=== PATIENT | male | born 1970 ===

== ENCOUNTER 2017-07-13 10:14 | Emergency (ER) | payer OTHER ==
[2017-07-13 10:24] VITALS: BMI 29.0
[2017-07-13] MEDS ORDERED: Sodium Chloride 0.9% 1,000 ML IV STA (10:43)
[2017-07-13] MEDS ORDERED: Acetaminophen 160 mg/5 ml UD PO STA (10:47)
[2017-07-13] MEDS ORDERED: Iohexol 350 MG/100 ML VIAL ONE (10:57)
[2017-07-13 11:15] LABS: BASO # 0.01 K/mm3 (0.0-2.0); BASO % 0.1 % (0.0-3.0); EOS % 0.1 % (1.5-5.0); GRAN # 5.46 (1.4-6.5); GRAN % 75.9 % (50.0-68.0); HEMATOCRIT 37.1 % (42.0-52.0); LYMPH # 0.5 (1.2-3.4); LYMPH % 7.4 % (22.0-35.0); MEAN CELL VOLUME 86.1 fl (80.0-105.0); MEAN CORPUSCULAR HEMOGLOBIN 29.7 pg (25.0-35.0); MEAN CORPUSCULAR HGB CONC 34.5 g/dl (31.0-37.0); MEAN PLATELET VOLUME 10.4 fl (7.0-11.0); MONO # 1.2 (0.1-0.6); MONO % 16.5 % (1.0-6.0); RED CELL DISTRIBUTION WIDTH 13.2 % (11.5-14.5); WHITE BLOOD COUNT 7.2 10^3/ul (4.5-11.0)
[2017-07-13 11:17] LABS: ALB/GLOB RATIO 1.2 (1.1-1.8); ALKALINE PHOSPHATASE 60 U/L (38-126); ALT/SGPT 32 U/L (7-56); AST/SGOT 29 U/L (17-59); BILIRUBIN,TOTAL 0.9 mg/dL (0.2-1.3); BLOOD UREA NITROGEN 16 mg/dL (7-21); CALCIUM 8.9 mg/dL (8.4-10.5); CARBON DIOXIDE 26 mmol/L (21-33); CHLORIDE 100 mmol/L (98-107); GFR AFRICAN-AMERICAN > 60; GLUCOSE,RANDOM 99 mg/dL (70-110); POTASSIUM 4.7 mmol/L (3.6-5.0); SODIUM 135 mmol/L (132-148); TOTAL PROTEIN 6.9 g/dL (5.8-8.3)
--- NOTE | 2017-07-13 11:18 | ED PDOC ---
Arrival/HPI - General Chief Complaint: ENT Problem Time Seen by Provider: 07/13/17 10:33 Historian: Patient - History of Present Illness Narrative History of Present Illness (Text): 07/13/17 11:30 46yr old diabetic male presents today with 3 week history of sore throat and difficulty swallowing. pt states he hasnt been able to eat or drink anything for the past 3 weeks due to pain. pt states he has tried cough medications, throat lozenges and tylenol/aleve without improvement of pain. pt denies fever/ chills at home but states he was told he has fever in Er. pt states he also has productive cough and nasal congestion. no cp or sob. no abdominal pain. no dizziness or weakness. no other complaints. Time/Duration: > week (3weeks) Symptom Onset: Gradual Symptom Course: Worsening Quality: Stabbing, Burning Severity Level: 8 Past Medical History - Provider Review Nursing Documentation Reviewed: Yes - Travel History Have you recently traveled outside [place] w/in the past 3 mons?: No - Infectious Disease Hx of Infectious Diseases: None - Tetanus Immunization Tetanus Immunization: Unknown - Endocrine/Metabolic Hx Diabetes Mellitus Type 2: Yes (diet control) - Psychiatric Hx Substance Use: No - Surgical History Other/Comment: L calf muscle surgery - Anesthesia Hx Anesthesia Reactions: No Hx Malignant Hyperthermia: No Family/Social History - Physician Review Nursing Documentation Reviewed: Yes Family/Social History: Unknown Family HX Smoking Status: Never Smoked Hx Alcohol Use: Yes Frequency of alcohol use: Socially Hx Substance Use: No Allergies/Home Meds Allergies/Adverse Reactions: Allergies No Known Allergies Allergy (Verified 07/13/17 10:24) Review of Systems - Review of Systems Constitutional: Fevers. absent: Fatigue ENT: Sore Throat, Sinus Congestion Respiratory: Cough, Sputum. absent: SOB Cardiovascular: absent: Chest Pain, Palpitations Gastrointestinal: absent: Abdominal Pain, Nausea, Vomiting Genitourinary Male: absent: Dysuria Musculoskeletal: absent: Arthralgias Skin: absent: Rash, Pruritis Neurological: absent: Headache, Dizziness Psychiatric: absent: Anxiety, Depression Physical Exam Vital Signs Reviewed: Yes Vital Signs Temp Pulse Resp BP Pulse Ox 07/13/17 13:44 99.2 F 90 18 108/66 97 07/13/17 12:29 91 H 18 95/52 L 96 07/13/17 10:14 102.1 F H 107 H 20 106/62 99 Temperature: Febrile Blood Pressure: Normal Pulse: Tachycardic Respiratory Rate: Normal Appearance: Positive for: Well-Appearing, Non-Toxic, Comfortable Pain Distress: None Mental Status: Positive for: Alert and Oriented X 3 Finger Stick Blood Glucose: 56 - Systems Exam Head: Present: Atraumatic Conjunctiva: Present: Normal Ears: Present: Normal, NORMAL TM. No: Erythema Mouth: Present: Moist Mucous Membranes, Normal Lips, Normal Tounge. No: Drooling, Trismus Pharnyx: Present: ERYTHEMA. No: EXUDATE, TONSILS ENLARGED, Peritonsilar Swelling, Uvular Deviation, Muffled/Hoarse Voice, Strider, Soft Palate/Uvular Edema Nose (External): Present: Atraumatic Nose (Internal): Present: Normal Inspection Neck: Present: Normal Range of Motion, Trachea Midline. No: Lymphadenopathy Respiratory/Chest: Present: Clear to Auscultation, Good Air Exchange. No: Respiratory Distress, Accessory Muscle Use Cardiovascular: Present: Regular Rate and Rhythm, Normal S1, S2. No: Murmurs Abdomen: No: Tenderness, Distention, Rebound, Guarding Back: Present: Normal Inspection Neurological: Present: GCS=15 Skin: Present: Warm, Dry, Normal Color. No: Rashes Psychiatric: Present: Alert, Oriented x 3 Medical Decision Making ED Course and Treatment: 07/13/17 13:32 Patient is nontoxic well appearing in no distress. febrile. c/o sore throat. pain with swallowing. Toradol 30 mg IM tylenol liquid. ct neck with contrast; FINDINGS: NASOPHARYNX: Unremarkable. SUPRAHYOID NECK: Unremarkable oropharynx, oral cavity, parapharyngeal space and retropharyngeal space. INFRAHYOID NECK: Unremarkable larynx, hypopharynx, and supraglottic space. Vocal cords intact. MASS: None. GLANDS: Parotid and submandibular glands unremarkable. Normal size thyroid gland, without nodule. LYMPH NODES: Mildly enlarged lymph nodes are seen bilaterally. CERVICAL SPINE: No fracture or focal lesion. VASCULAR STRUCTURES: Unremarkable. OTHER FINDINGS: None. IMPRESSION: Unremarkable contrast enhanced CT of the neck. Decadron 10 mg IM amoxicillin PO Patient reassessment: Patient feeling better after medications, vital signs stable. Moist mucous membranes. eating and drinking in er. will d/c home to f/u with GI and ENT for further evaluation. I advised follow up with primary care physician, ENT and GI within the next 2 days, advised to increase fluids take medications as prescribed and return if symptoms worsen persist or if new symptoms develop. Patient verbalizes understanding of discharge instructions and need for immediate followup. all aspects of this case were discussed the attending of record. IMPRESSION; pharyngitis Motrin every 6 hours as needed for pain/fever reduction Increase fluids Amoxicillin; 3 times daily x10 days Follow up primary care physician within the next 2 days Follow up with the ENT specialist within the next 2 days. Saltwater gargles, throat lozenges Return if symptoms worsen persist or if the symptoms develop - Lab Interpretations Lab Results: 07/13/17 11:00 07/13/17 11:00 Lab Results 07/13/17 11:00: WBC 7.2, RBC 4.31, Hgb 12.8 L, Hct 37.1 L, MCV 86.1, MCH 29.7, MCHC 34.5, RDW 13.2, Plt Count 150, MPV 10.4, Gran % 75.9 H, Lymph % (Auto) 7.4 L, [place] % (Auto) 16.5 H, Eos % (Auto) 0.1 L, Baso % (Auto) 0.1, Gran # 5.46, Lymph # 0.5 L, [place] # 1.2 H, Eos # 0.0, Baso # 0.01 07/13/17 11:00: Sodium 135, Potassium 4.7, Chloride 100, Carbon Dioxide 26, Anion Gap 14, BUN 16, Creatinine 0.8, Est GFR ( Amer) > 60, Est GFR (Non- Af Amer) > 60, Random Glucose 99, Calcium 8.9, Total Bilirubin 0.9, AST 29, ALT 32, Alkaline Phosphatase 60, Total Protein 6.9, Albumin 3.8, Globulin 3.1, Albumin/Globulin Ratio 1.2 07/13/17 11:00: Grp A Beta Strep Ag Negative - RAD Interpretation Radiology Orders: 07/13/17 10:35 CHEST TWO VIEWS (PA/LAT) [RAD] Stat 07/13/17 10:49 NECK SOFT TISSUE W/CONTRAST [CT] Stat - Medication Orders Current Medication Orders: Discontinued Medications Acetaminophen (Tylenol 325mg Tab) 975 mg PO STAT STA Stop: 07/13/17 10:44 Last Admin: 07/13/17 11:16 Dose: Acetaminophen (Tylenol 160mg/5ml Oral Soln) 975 mg PO STAT STA Stop: 07/13/17 10:48 Last Admin: 07/13/17 12:08 Dose: Acetaminophen (Tylenol 650mg/20.3ml Solution Ud) 975 mg PO STAT STA Stop: 07/13/17 12:07 Last Admin: 07/13/17 12:24 Dose: 975 mg Amoxicillin (Amoxil 500 Mg Cap) 500 mg PO STAT STA PRN Reason: Protocol Stop: 07/13/17 13:33 Last Admin: 07/13/17 13:49 Dose: 500 mg Dexamethasone (Decadron Inj) 10 mg IVP STAT STA Stop: 07/13/17 13:32 Last Admin: 07/13/17 13:49 Dose: 10 mg IVP Administration Document 07/13/17 13:49 SRE (Rec: 07/13/17 13:49 SRE [id number]) Charges for Administration # of IVP Administrations 1 Sodium Chloride (Sodium Chloride 0.9%) 1,000 mls @ 999 mls/hr IV .Q1H1M STA Stop: 07/13/17 11:43 Last Admin: 07/13/17 12:12 Dose: 999 mls/hr eMAR Start Stop Document 07/13/17 12:12 SRE (Rec: 07/13/17 12:13 SRE [id number]) Intravenous Solution Start Date 07/13/17 Start Time 10:50 End Date 07/13/17 End time 11:50 Total Infusion Time 60 Ketorolac Tromethamine (Toradol) 30 mg IVP STAT STA Stop: 07/13/17 10:44 Last Admin: 07/13/17 12:13 Dose: 30 mg MAR Pain Assessment Document 07/13/17 12:13 SRE (Rec: 07/13/17 12:13 SRE [id number]) Pain Reassessment Is this a pain reassessment? Yes Sleep Is patient sleeping during reassessment? No Presence of Pain Presence of Pain Yes Pain Scale Used Pain Scale Used Numeric Location Pain Location Body Site Throat Description Description Constant IVP Administration Document 07/13/17 12:13 SRE (Rec: 07/13/17 12:13 SRE [id number]) Charges for Administration # of IVP Administrations 1 Re-Assess: MAR Pain Assessment Document 07/13/17 13:13 SRE (Rec: 07/13/17 13:47 SRE [id number]) Pain Reassessment Is this a pain reassessment? Yes Sleep Is patient sleeping during reassessment? No Presence of Pain Presence of Pain Yes Pain Scale Used Pain Scale Used Numeric Location Pain Location Body Site Throat Description Description Intermittent Disposition/Present on Arrival - Present on Arrival Any Indicators Present on Arrival: No History of DVT/PE: No History of Uncontrolled Diabetes: No Urinary Catheter: No History of Decub. Ulcer: No History Surgical Site Infection Following: None - Disposition Have Diagnosis and Disposition been Completed?: Yes Diagnosis: Pharyngitis, Fever Disposition: HOME/ ROUTINE Disposition Time: 13:35 Patient Plan: Discharge Condition: GOOD Discharge Instructions (ExitCare): Pharyngitis (ED) Additional Instructions: Motrin every 6 hours as needed for pain/fever reduction Increase fluids Amoxicillin; 3 times daily x10 days Follow up primary care physician within the next 2 days Follow up with the ENT specialist within the next 2 days. Saltwater gargles, throat lozenges Return if symptoms worsen persist or if the symptoms develop Prescriptions: Amoxicillin 500 mg PO TID #30 tab Ibuprofen [Motrin] 600 mg PO Q6H PRN #20 tab PRN Reason: pain/fever reduction Referrals: Galen Freitas DO [Staff Provider] - Follow up with primary Jose Rafael Disla MD [Staff Provider] - Follow up with primary Edgardo Tabares MD [Staff Provider] - Follow up with primary Forms: [employer] ([place]), WORK NOTE
[2017-07-13] MEDS ORDERED: Acetaminophen 650mg/20.3ml solution UD PO STA (12:06)
--- NOTE | 2017-07-13 12:08 | CT ---
PROCEDURE: CT NECK WITH CONTRAST HISTORY: throat pain, difficulty swallowing COMPARISON: None TECHNIQUE: CT of the neck with intravenous contrast. Coronal and sagittal reformats generated. Intravenous contrast dose: 100 cc of Omni 350 Radiation dose: DLP 363 mGy-cm This CT exam was performed using one or more of the following dose reduction techniques: Automated exposure control, adjustment of the mA and/or kV according to patient size, and/or use of iterative reconstruction technique. FINDINGS: NASOPHARYNX: Unremarkable. SUPRAHYOID NECK: Unremarkable oropharynx, oral cavity, parapharyngeal space and retropharyngeal space. INFRAHYOID NECK: Unremarkable larynx, hypopharynx, and supraglottic space. Vocal cords intact. MASS: None. GLANDS: Parotid and submandibular glands unremarkable. Normal size thyroid gland, without nodule. LYMPH NODES: Mildly enlarged lymph nodes are seen bilaterally. CERVICAL SPINE: No fracture or focal lesion. VASCULAR STRUCTURES: Unremarkable. OTHER FINDINGS: None. IMPRESSION: Unremarkable contrast enhanced CT of the neck.
[2017-07-13 12:32] VITALS: RESP 18
--- NOTE | 2017-07-13 13:04 | RAD ---
HISTORY: cough/fever COMPARISON: No prior. TECHNIQUE: Chest PA and lateral FINDINGS: LUNGS: There is linear scarring or atelectasis in the left midlung field. There is no focal consolidation PLEURA: No significant pleural effusion identified. No pneumothorax apparent. CARDIOVASCULAR: Normal. OSSEOUS STRUCTURES: No significant abnormalities. VISUALIZED UPPER ABDOMEN: Normal. OTHER FINDINGS: None. IMPRESSION: There is linear scarring or atelectasis in the left midlung field. There is no focal consolidation
[2017-07-13 13:45] VITALS: BP 108/66; PULSE 90; TEMP 99.2; O2SAT 97
== END 2017-07-13 13:58 | disposition home or self-care (01) ==
LOC: ED 10:14 → MERGE 10:14 → ED 13:58
DX: J02.9 Acute pharyngitis, unspecified (principal); R50.9 Fever, unspecified; E11.9 Type 2 diabetes mellitus without complications
CPT/HCPCS: 70491; 71020; 80053; 85025; 87070; 87430; 96361; 96374; 96375; 99284; J1100; J1885; J7040; Q9967

== ENCOUNTER 2018-01-15 11:28 | Inpatient (IN) | payer OTHER ==
[2018-01-15] MEDS ORDERED: Albuterol-Ipratrop 3 mg / 0.5 (3 ml) UD IH STA (11:58)
--- NOTE | 2018-01-15 12:02 | ED PDOC ---
Arrival/HPI - General Time Seen by Provider: 01/15/18 11:56 Historian: Patient - History of Present Illness Narrative History of Present Illness (Text): 01/15/18 11:59 47 year old male, whose past medical history includes diabetes, who presents to the emergency department complaining of dyspnea upon exertion, subjective fever , and a productive cough for 1.5 weeks. Patient states he has no energy for anything. Patient notes cough with deep breaths. Patient denies any chills, nausea, vomiting, diarrhea, back pain, neck pain, headache, dizziness, or any other complaints. Time/Duration: > week Symptom Onset: Gradual Symptom Course: Unchanged Activities at Onset: Light Context: Home Past Medical History - Provider Review Nursing Documentation Reviewed: Yes - Infectious Disease Hx of Infectious Diseases: None - Tetanus Immunization Tetanus Immunization: Unknown - Cardiac Hx Cardiac Disorders: No - Pulmonary Hx Respiratory Disorders: No - Neurological Hx Neurological Disorder: No - HEENT Hx HEENT Disorder: No - Renal Hx Renal Disorder: No - Endocrine/Metabolic Hx Diabetes Mellitus Type 2: Yes (diet control) - Hematological/Oncological Hx Blood Disorders: No - Integumentary Hx Dermatological Disorder: No - Musculoskeletal/Rheumatological Hx Musculoskeletal Disorders: No Hx Falls: No - Gastrointestinal Hx Gastrointestinal Disorders: No - Genitourinary/Gynecological Hx Genitourinary Disorders: No - Psychiatric Hx Substance Use: No - Surgical History Other/Comment: L calf muscle surgery - Anesthesia Hx Anesthesia Reactions: No Hx Malignant Hyperthermia: No Family/Social History - Physician Review Nursing Documentation Reviewed: Yes Family/Social History: Unknown Family HX Smoking Status: Never Smoked Hx Alcohol Use: Yes Hx Substance Use: No Allergies/Home Meds Allergies/Adverse Reactions: Allergies No Known Allergies Allergy (Verified 02/13/17 10:11) Home Medications: Home Meds Medication Instructions Recorded Confirmed Ibuprofen [Advil] 3 tab PO PRN PRN 02/13/17 02/13/17 Review of Systems - Review of Systems Constitutional: Fevers Eyes: absent: Vision Changes ENT: absent: Hearing Changes Respiratory: SOB, Cough, Sputum Cardiovascular: Chest Pain, CLEMONS Gastrointestinal: absent: Abdominal Pain, Diarrhea, Nausea, Vomiting Genitourinary Male: absent: Dysuria, Frequency, Hematuria, Urinary Output Changes Musculoskeletal: absent: Back Pain, Neck Pain Skin: absent: Rash Neurological: absent: Headache, Dizziness Psychiatric: absent: Anxiety, Depression Physical Exam Vital Signs Temp Pulse Resp BP Pulse Ox 01/15/18 12:10 18 01/15/18 12:04 98.7 F 100 H 18 120/75 91 L Temperature: Afebrile Blood Pressure: Normal Pulse: Tachycardic Respiratory Rate: Normal Appearance: Positive for: Well-Appearing, Non-Toxic, Comfortable Pain Distress: None Mental Status: Positive for: Alert and Oriented X 3 - Systems Exam Head: Present: Atraumatic, Normocephalic Pupils: Present: PERRL Extroacular Muscles: Present: EOMI Conjunctiva: Present: Normal Mouth: Present: Moist Mucous Membranes Neck: Present: Normal Range of Motion. No: Meningeal Signs, MIDLINE TENDERNESS , Paraspinal Tenderness Respiratory/Chest: Present: Other (Coarse breath sounds bilaterally). No: Respiratory Distress, Accessory Muscle Use Cardiovascular: Present: Regular Rate and Rhythm, Normal S1, S2. No: Murmurs Abdomen: No: Tenderness, Distention, Peritoneal Signs Back: Present: Normal Inspection. No: CVA Tenderness, Midline Tenderness, Paraspinal Tenderness Upper Extremity: Present: Normal Inspection. No: Cyanosis, Edema Lower Extremity: Present: Normal Inspection. No: Edema Neurological: Present: GCS=15, CN II-XII Intact, Speech Normal Skin: Present: Warm, Dry, Normal Color. No: Rashes Psychiatric: Present: Alert, Oriented x 3, Normal Insight, Normal Concentration Medical Decision Making ED Course and Treatment: 01/15/18 12:04 Impression: 47 year old male presents to the emergency department complaining of dyspnea upon exertion, cough, and fever. Plan: -- Chest X-ray -- D Dimer -- Labs -- Troponin -- Duoneb -- Benzonatate -- Reassess and disposition Progress Notes: 01/15/18 13:22 EKG shows sinus tachycardia at 104bpm. 01/15/18 14:06 Chest X-ray reviewed, shows: LUNGS: Abnormal opacity at lateral right lung base not clearly evident in the lateral projection but possibly lateral segment right middle lobe. Followup advised. Possible pneumonia. No other abnormal opacity appreciated. PLEURA: No significant pleural effusion identified. No pneumothorax apparent. CARDIOVASCULAR: Normal. OSSEOUS STRUCTURES: No significant abnormalities. VISUALIZED UPPER ABDOMEN: Normal. OTHER FINDINGS: None. IMPRESSION: Possible right middle lobe infiltrate. Followup advised. 01/15/18 14:26 CT Chest reviewed, shows: PULMONARY ARTERIES: Unremarkable. No pulmonary embolism. AORTA: No acute findings. No thoracic aortic aneurysm. LUNGS: multifocal bilateral patchy opacities most prominent in the lower lobes. Possible infectious etiology. No pulmonary mass. PLEURAL SPACES: Unremarkable. No effusion or pneuomothorax. HEART: Unremarkable. No cardiomegaly. No significant pericardial effusion. LYMPH NODES: No lymphadenopathy. BONES, CHEST WALL: Unremarkable. No fracture or destructive lesion OTHER FINDINGS: Mild splenomegaly. Nonspecific low-density lesion upper pole right kidney, 11 mm. Possible cyst. IMPRESSION: No evidence of pulmonary embolism. Multifocal bilateral pulmonary infiltrates common nonspecific. Possible infectious etiology. Additional minor findings as above. 01/15/18 15:13 Will admit to hospitalist for hypoxia and b/l pneumonia. Covered for community acquired pneumonia. HIV ordered. ABG added as requested by hospitalist. - Lab Interpretations Lab Results: 01/15/18 13:17 01/15/18 13:17 Lab Results 01/15/18 15:15: pCO2 32 L, pO2 56.0 L, HCO3 22.8, ABG pH 7.46 H, ABG Total CO2 23.8, ABG O2 Saturation 92.0 L, ABG O2 Content 15.3, ABG Base Excess -0.4, ABG Hemoglobin 12.1, ABG Carboxyhemoglobin 1.7 H, POC ABG HHb (Measured) 7.8 H, ABG Methemoglobin 0.5, ABG O2 Capacity 16.6, Hgb O2 Saturation 90.0 L, FiO2 21.0 01/15/18 13:17: Sodium 143, Potassium 4.3, Chloride 104, Carbon Dioxide 27, Anion Gap 16, BUN 14, Creatinine 0.8, Est GFR ( Amer) > 60, Est GFR (Non- Af Amer) > 60, Random Glucose 119 H, Calcium 8.8, Total Bilirubin 0.6, AST 39, ALT 31, Alkaline Phosphatase 87, Troponin I < 0.01, NT-Pro-B Natriuret Pep 31.2 , Total Protein 7.2, Albumin 3.8, Globulin 3.4, Albumin/Globulin Ratio 1.1 01/15/18 13:17: D-Dimer, Quantitative 2545 H 01/15/18 13:17: WBC 6.8, RBC 4.42, Hgb 12.7 L, Hct 37.3 L, MCV 84.4, MCH 28.7, MCHC 34.0, RDW 13.6, Plt Count 205, MPV 10.0, Gran % 77.9 H, Lymph % (Auto) 11.9 L, [place] % (Auto) 8.2 H, Eos % (Auto) 1.9, Baso % (Auto) 0.1, Gran # 5.32, Lymph # (Auto) 0.8 L, [place] # (Auto) 0.6, Eos # (Auto) 0.1, Baso # (Auto) 0.01 - RAD Interpretation Radiology Orders: 01/15/18 11:56 CHEST TWO VIEWS (PA/LAT) [RAD] Stat 01/15/18 13:40 ANGIO CHEST PE PROTOCOL [CT] Stat - Medication Orders Current Medication Orders: Ceftriaxone Sodium (Rocephin 1 Gram Ivpb) 1 gm in 100 mls @ 100 mls/hr IVPB ONCE ONE Stop: 01/15/18 15:44 Ceftriaxone Sodium (Rocephin 1 Gram Ivpb) 1 gm in 100 mls @ 100 mls/hr IVPB DAILY JENNIFER PRN Reason: Protocol Azithromycin (Zithromax 500mg In Ns) 500 mg in 250 mls @ 167 mls/hr IVPB DAILY JENNIFER PRN Reason: Protocol Insulin Human Regular (Humulin R Low) 0 units SC ACHS JENNIFER PRN Reason: Protocol Discontinued Medications Albuterol/Ipratropium (Duoneb 3 Mg/0.5 Mg (3 Ml) Ud) 3 ml IH STAT STA Stop: 01/15/18 11:59 Last Admin: 01/15/18 12:49 Dose: 3 ml Azithromycin (Zithromax) 500 mg PO STAT STA PRN Reason: Protocol Stop: 01/15/18 14:32 Benzonatate (Tessalon Perles) 100 mg PO STAT STA Stop: 01/15/18 11:59 Last Admin: 01/15/18 13:27 Dose: 100 mg - Scribe Statement The provider has reviewed the documentation as recorded by the Scribdenita Baldwin All medical record entries made by the Scribe were at my direction and personally dictated by me. I have reviewed the chart and agree that the record accurately reflects my personal performance of the history, physical exam, medical decision making, and the department course for this patient. I have also personally directed, reviewed, and agree with the discharge instructions and disposition. Disposition/Present on Arrival - Present on Arrival Any Indicators Present on Arrival: No History of DVT/PE: No History of Uncontrolled Diabetes: No Urinary Catheter: No History Surgical Site Infection Following: None - Disposition Have Diagnosis and Disposition been Completed?: Yes Diagnosis: Hypoxic, Pneumonia Disposition: HOSPITALIZED Disposition Time: 15:14 Patient Plan: Admission Patient Problems: Current Active Problems Problem Status Onset Hypoxic Acute Pneumonia Acute Condition: FAIR Referrals: Bradley Guajardo, [Primary Care Provider] - Follow up with primary
[2018-01-15 13:25] LABS: BASO # 0.01 K/mm3 (0.0-2.0); BASO % 0.1 % (0.0-3.0); EOS # 0.1 (0.0-0.7); EOS % 1.9 % (1.5-5.0); GRAN # 5.32 (1.4-6.5); GRAN % 77.9 % (50.0-68.0); HEMOGLOBIN 12.7 g/dL (14.0-18.0); LYMPH # 0.8 (1.2-3.4); LYMPH % 11.9 % (22.0-35.0); MEAN CELL VOLUME 84.4 fl (80.0-105.0); MEAN CORPUSCULAR HEMOGLOBIN 28.7 pg (25.0-35.0); MONO # 0.6 (0.1-0.6); MONO % 8.2 % (1.0-6.0); RBC 4.42 10^6/uL (3.5-6.1); RED CELL DISTRIBUTION WIDTH 13.6 % (11.5-14.5); WHITE BLOOD COUNT 6.8 10^3/ul (4.5-11.0)
[2018-01-15 13:37] LABS: ALB/GLOB RATIO 1.1 (1.1-1.8); ALBUMIN 3.8 g/dL (3.0-4.8); ALT/SGPT 31 U/L (7-56); AST/SGOT 39 U/L (17-59); BLOOD UREA NITROGEN 14 mg/dL (7-21); CALCIUM 8.8 mg/dL (8.4-10.5); GFR AFRICAN-AMERICAN > 60; GFR NON-AFRICAN AMERICAN > 60
[2018-01-15] MEDS ORDERED: Iohexol 350 MG/100 ML VIAL ONE (13:44)
[2018-01-15 13:48] LABS: B-TYPE NATRIURETIC PEPTIDE 31.2 pg/mL (0-450); TROPONIN I < 0.01 ng/mL
--- NOTE | 2018-01-15 14:00 | RAD ---
HISTORY: cough COMPARISON: 07/13/2017 TECHNIQUE: Chest PA and lateral FINDINGS: LUNGS: Abnormal opacity at lateral right lung base not clearly evident in the lateral projection but possibly lateral segment right middle lobe. Followup advised. Possible pneumonia. No other abnormal opacity appreciated. PLEURA: No significant pleural effusion identified. No pneumothorax apparent. CARDIOVASCULAR: Normal. OSSEOUS STRUCTURES: No significant abnormalities. VISUALIZED UPPER ABDOMEN: Normal. OTHER FINDINGS: None. IMPRESSION: Possible right middle lobe infiltrate. Followup advised.
--- NOTE | 2018-01-15 14:22 | CT ---
PROCEDURE: CT Chest with contrast (Pulmonary Angiogram) HISTORY: elevated d-dimer, short of breath COMPARISON: None available. TECHNIQUE: Axial computed tomography images were obtained of the chest in the pulmonary arterial phase of enhancement. Coronal and sagittal reformatted images were created and reviewed. Intravenous contrast dose: 100 mL Omnipaque 350 Radiation dose: Total exam DLP = 531.90 mGy-cm. This CT exam was performed using one or more of the following dose reduction techniques: Automated exposure control, adjustment of the mA and/or kV according to patient size, and/or use of iterative reconstruction technique. FINDINGS: PULMONARY ARTERIES: Unremarkable. No pulmonary embolism. AORTA: No acute findings. No thoracic aortic aneurysm. LUNGS: multifocal bilateral patchy opacities most prominent in the lower lobes. Possible infectious etiology. No pulmonary mass. PLEURAL SPACES: Unremarkable. No effusion or pneuomothorax. HEART: Unremarkable. No cardiomegaly. No significant pericardial effusion. LYMPH NODES: No lymphadenopathy. BONES, CHEST WALL: Unremarkable. No fracture or destructive lesion OTHER FINDINGS: Mild splenomegaly. Nonspecific low-density lesion upper pole right kidney, 11 mm. Possible cyst. IMPRESSION: No evidence of pulmonary embolism. Multifocal bilateral pulmonary infiltrates common nonspecific. Possible infectious etiology. Additional minor findings as above.
[2018-01-15] MEDS ORDERED: cefTRIAXone (Rocephin) 1 gm Inj IVPB STA (14:31)
[2018-01-15] MEDS ORDERED: cefTRIAXone 1 gm 1 GM/100 ML BAG IVPB ONE (14:45)
[2018-01-15 15:28] LABS: ARTERIAL BLOOD GAS HCO3 22.8 mmol/L (21-28); ARTERIAL BLOOD GAS HEMOGLOBIN 12.1 g/dL (11.7-17.4); ARTERIAL BLOOD GAS O2 CAPACITY 16.6 mL/dl (16-24); ARTERIAL BLOOD GAS O2 CONTENT 15.3 ML/dl (15-23); ARTERIAL BLOOD GAS PCO2 32 mm/Hg (35-45); ARTERIAL BLOOD GAS PH 7.46 (7.35-7.45); ARTERIAL BLOOD GAS TCO2 23.8 mmol.L (22-28)
[2018-01-15] MEDS ORDERED: Albuterol-Ipratrop 3 mg / 0.5 (3 ml) UD IH PRN (16:32)
--- NOTE | 2018-01-15 17:43 | CP.PCM.HP ---
<Tima Conrad - Last Filed: 01/15/18 17:36> History of Present Illness - History of Present Illness History of Present Illness: Patient is a 47M with a PMH of DM (No medication, diet controlled) who comes in to the ED with 1.5 wk history of worsening SOB. He states that it became progressively worse until yesterday when he was unable to climb one flight of stairs without stopping to rest and catch his breath. It is associated with a cough with minimally productive sputum, 3 episodes of diarrhea and no nausea or vomiting. Complains of subjective fevers and occasionally shaking chills. Denies any orthopnea or paroxysmal nocturnal dyspnea. Usually he is able to ride his bike or walk fairly long and generally tries to keep in good shape. He became worried when the SOB started to affect his ADLs. 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 Has 3 pets at home but these are not new. No recent incarceration. No sick contacts. No recent travel. No strange foods. 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 smoked for 10-15 years 1ppd but quit 17 years ago. social drinker (1-2 drinks every 2 weeks). Denies illicit drug use. Lives with his GF and dogs. Meds: None All: None Present on Admission - Present on Admission Any Indicators Present on Admission: No Review of Systems - Review of Systems Review of Systems: per HPI Past Patient History - Infectious Disease Hx of Infectious Diseases: None - Tetanus Immunizations Tetanus Immunization: Unknown - Past Medical History & Family History Past Medical History?: Yes - Past Social History Smoking Status: Never Smoked - CARDIAC Hx Cardiac Disorders: No - PULMONARY Hx Respiratory Disorders: No - NEUROLOGICAL Hx Neurological Disorder: No - HEENT Hx HEENT Problems: No - RENAL Hx Chronic Kidney Disease: No - ENDOCRINE/METABOLIC Hx Diabetes Mellitus Type 2: Yes (diet control) - HEMATOLOGICAL/ONCOLOGICAL Hx Blood Disorders: No - INTEGUMENTARY Hx Dermatological Problems: No - MUSCULOSKELETAL/RHEUMATOLOGICAL Hx Musculoskeletal Disorders: No Hx Falls: No - GASTROINTESTINAL Hx Gastrointestinal Disorders: No - GENITOURINARY/GYNECOLOGICAL Hx Genitourinary Disorders: No - PSYCHIATRIC Hx Substance Use: No - SURGICAL HISTORY Other/Comment: L calf muscle surgery - ANESTHESIA Hx Anesthesia Reactions: No Hx Malignant Hyperthermia: No Meds Allergies/Adverse Reactions: Allergies Allergy/AdvReac Type Severity Reaction Status Date / Time No Known Allergies Allergy Verified 02/13/17 10:11 Physical Exam - Constitutional Appears: Well - Head Exam Head Exam: ATRAUMATIC, NORMAL INSPECTION, NORMOCEPHALIC - Eye Exam Eye Exam: EOMI, Normal appearance, PERRL Pupil Exam: NORMAL ACCOMODATION, PERRL - ENT Exam ENT Exam: Mucous Membranes Moist, Normal Exam - Neck Exam Neck exam: Positive for: Normal Inspection - Respiratory Exam Respiratory Exam: Clear to Auscultation Bilateral, NORMAL BREATHING PATTERN - Cardiovascular Exam Cardiovascular Exam: REGULAR RHYTHM - GI/Abdominal Exam GI & Abdominal Exam: Normal Bowel Sounds, Soft. absent: Distended, Tenderness - Extremities Exam Extremities exam: Positive for: normal inspection. Negative for: joint swelling , tenderness - Back Exam Back exam: NORMAL INSPECTION - Neurological Exam Neurological exam: Alert, CN II-XII Intact, Normal Gait, Oriented x3, Reflexes Normal - Psychiatric Exam Psychiatric exam: Normal Affect, Normal Mood - Skin Skin Exam: Dry, Intact, Normal Color, Warm Results - Vital Signs Recent Vital Signs: Last Vital Signs Temp 98.7 F 01/15/18 12:04 Pulse 100 H 01/15/18 12:04 Resp 18 01/15/18 12:10 BP 120/75 01/15/18 12:04 Pulse Ox 91 L 01/15/18 12:04 - Labs Result Diagrams: 01/15/18 13:17 01/15/18 13:17 Labs: Laboratory Results - last 24 hr 01/15/18 15:15 pCO2 32 L pO2 56.0 L HCO3 22.8 ABG pH 7.46 H ABG Total CO2 23.8 ABG O2 Saturation 92.0 L ABG O2 Content 15.3 ABG Base Excess -0.4 ABG Hemoglobin 12.1 ABG Carboxyhemoglobin 1.7 H POC ABG HHb (Measured) 7.8 H ABG Methemoglobin 0.5 ABG O2 Capacity 16.6 Hgb O2 Saturation 90.0 L FiO2 21.0 Assessment & Plan (1) Community acquired pneumonia Assessment and Plan: CTA: Multifocal Bilateral Pulm Infiltrates. Rocephin/Azithro Duonebs Q2 PRN Check HIV panel, procal, Mycoplasma, Legionella, Strep. pneumo, blood culture, sputum culture Status: Acute Priority: High <Ramon Brunson - Last Filed: 01/16/18 16:14> Results - Vital Signs Recent Vital Signs: Last Vital Signs Temp 99.1 F 01/16/18 06:00 Pulse 99 H 01/16/18 06:00 Resp 20 01/16/18 06:00 BP 104/64 01/16/18 06:00 Pulse Ox 93 L 01/16/18 06:00 - Labs Result Diagrams: 01/16/18 07:00 01/16/18 06:15 Labs: Laboratory Results - last 24 hr 01/15/18 01/15/18 01/15/18 15:55 17:49 21:44 WBC RBC Hgb Hct MCV MCH MCHC RDW Plt Count MPV Gran % Lymph % (Auto) [place] % (Auto) Eos % (Auto) Baso % (Auto) Gran # Lymph # (Auto) [place] # (Auto) Eos # (Auto) Baso # (Auto) Sodium Potassium Chloride Carbon Dioxide Anion Gap BUN Creatinine Est GFR ( Amer) Est GFR (Non-Af Amer) POC Glucose (mg/dL) 60 L 114 H Random Glucose Hemoglobin A1c Calcium Phosphorus Magnesium Total Bilirubin AST ALT Alkaline Phosphatase Total Protein Albumin Globulin Albumin/Globulin Ratio Procalcitonin TSH 3rd Generation HIV 1&2 Antibody Screen Reactive 01/16/18 01/16/18 01/16/18 06:15 06:15 06:15 WBC RBC Hgb Hct MCV MCH MCHC RDW Plt Count MPV Gran % Lymph % (Auto) [place] % (Auto) Eos % (Auto) Baso % (Auto) Gran # Lymph # (Auto) [place] # (Auto) Eos # (Auto) Baso # (Auto) Sodium 140 Potassium 4.0 Chloride 103 Carbon Dioxide 26 Anion Gap 15 BUN 14 Creatinine 0.7 L Est GFR ( Amer) > 60 Est GFR (Non-Af Amer) > 60 POC Glucose (mg/dL) Random Glucose 120 H Hemoglobin A1c 7.4 H Calcium 8.6 Phosphorus Magnesium Total Bilirubin 0.5 AST 36 ALT 25 Alkaline Phosphatase 87 Total Protein 6.8 Albumin 3.5 Globulin 3.4 Albumin/Globulin Ratio 1.0 L Procalcitonin TSH 3rd Generation 1.60 HIV 1&2 Antibody Screen 01/16/18 01/16/18 01/16/18 06:15 07:00 07:00 WBC 6.4 RBC 4.31 Hgb 12.4 L Hct 36.0 L MCV 83.5 MCH 28.8 MCHC 34.4 RDW 13.6 Plt Count 208 MPV 9.9 Gran % 76.5 H Lymph % (Auto) 10.5 L [place] % (Auto) 10.5 H Eos % (Auto) 2.3 Baso % (Auto) 0.2 Gran # 4.91 Lymph # (Auto) 0.7 L [place] # (Auto) 0.7 H Eos # (Auto) 0.2 Baso # (Auto) 0.01 Sodium Potassium Chloride Carbon Dioxide Anion Gap BUN Creatinine Est GFR ( Amer) Est GFR (Non-Af Amer) POC Glucose (mg/dL) Random Glucose Hemoglobin A1c Calcium Phosphorus 3.2 Magnesium 1.9 Total Bilirubin AST ALT Alkaline Phosphatase Total Protein Albumin Globulin Albumin/Globulin Ratio Procalcitonin < 0.05 L TSH 3rd Generation HIV 1&2 Antibody Screen 01/16/18 01/16/18 01/16/18 07:33 11:55 15:49 WBC RBC Hgb Hct MCV MCH MCHC RDW Plt Count MPV Gran % Lymph % (Auto) [place] % (Auto) Eos % (Auto) Baso % (Auto) Gran # Lymph # (Auto) [place] # (Auto) Eos # (Auto) Baso # (Auto) Sodium Potassium Chloride Carbon Dioxide Anion Gap BUN Creatinine Est GFR ( Amer) Est GFR (Non-Af Amer) POC Glucose (mg/dL) 118 H 94 90 Random Glucose Hemoglobin A1c Calcium Phosphorus Magnesium Total Bilirubin AST ALT Alkaline Phosphatase Total Protein Albumin Globulin Albumin/Globulin Ratio Procalcitonin TSH 3rd Generation HIV 1&2 Antibody Screen Attending/Attestation - Attestation I have personally seen and examined this patient.: Yes I have fully participated in the care of the patient.: Yes I have reviewed all pertinent clinical information: Yes Notes (Text): 01/16/18 16:08 Medical record note made by the resident after discussion with my direction and input after the patient was personally seen and examined by me. I have reviewed the chart and agree that the record accurately reflects by personal performance of the history, physical exam, data review, and medical decision-making, in the course for the patient. I have also personally directed the plan of care. 47M with a PMH of DM is admitted with multifocal bilateral Pneumonia. We will start patient on IV ceftriaxone and azithromycin.We will follow up cultures.We will check Procalcitonin level.We will also check HIV test. Management plan was discussed in detail with patient. Education was provided.
[2018-01-15] MEDS: Insulin Reg-LOW-Coverage SC SCH ×2 (17:49→21:48)
[2018-01-15] MEDS: guaiFENesin 100 mg/5 ml Syrup UD PO SCH ×2 (18:30→21:49)
[2018-01-15 18:57] VITALS: BMI 30.9
[2018-01-16] MEDS: guaiFENesin 100 mg/5 ml Syrup UD PO SCH (01:42)
[2018-01-16 06:52] LABS: ALBUMIN 3.5 g/dL (3.0-4.8); ALT/SGPT 25 U/L (7-56); AST/SGOT 36 U/L (17-59); BLOOD UREA NITROGEN 14 mg/dL (7-21); CALCIUM 8.6 mg/dL (8.4-10.5); GFR AFRICAN-AMERICAN > 60; GFR NON-AFRICAN AMERICAN > 60
[2018-01-16 07:17] LABS: BASO # 0.01 K/mm3 (0.0-2.0); BASO % 0.2 % (0.0-3.0); EOS # 0.2 (0.0-0.7); EOS % 2.3 % (1.5-5.0); GRAN # 4.91 (1.4-6.5); GRAN % 76.5 % (50.0-68.0); HEMOGLOBIN 12.4 g/dL (14.0-18.0); LYMPH # 0.7 (1.2-3.4); LYMPH % 10.5 % (22.0-35.0); MEAN CELL VOLUME 83.5 fl (80.0-105.0); MEAN CORPUSCULAR HEMOGLOBIN 28.8 pg (25.0-35.0); MEAN CORPUSCULAR HGB CONC 34.4 g/dl (31.0-37.0); MEAN PLATELET VOLUME 9.9 fl (7.0-11.0); MONO # 0.7 (0.1-0.6); MONO % 10.5 % (1.0-6.0); RBC 4.31 10^6/uL (3.5-6.1); RED CELL DISTRIBUTION WIDTH 13.6 % (11.5-14.5); WHITE BLOOD COUNT 6.4 10^3/ul (4.5-11.0)
[2018-01-16] MEDS: Insulin Reg-LOW-Coverage SC SCH ×4 (07:43→22:12)
[2018-01-16] MEDS: Enoxaparin 40 mg Syringe SC SCH ×2 (09:38→09:51)
[2018-01-16] MEDS: Azithromycin 500MG/NS 250ml 500 MG/250 ML BAG IVPB SCH (09:39)
[2018-01-16] MEDS: cefTRIAXone 1 gm 1 GM/100 ML BAG IVPB SCH (09:39)
--- NOTE | 2018-01-16 11:58 | CP.PCM.PN ---
<Tima Conrad - Last Filed: 01/16/18 11:55> Subjective - Date & Time of Evaluation Date of Evaluation: 01/16/18 Time of Evaluation: 11:55 - Subjective Subjective: Patient seen and examined at bedside. Doing well. States his breathing has improved. No nausea, vomiting, fever or chills. Ambulating without difficulty. Tolerating diet. Although patient yesterday denied having HIV, when confronted with a positive preliminary test this morning he states yes he was originally diagnosed 1 year ago and had received treatment at that time for one year time. After this his doctor retired and he did not find another doctor. He has been without HAART therapy for one year. Objective - Vital Signs/Intake and Output Vital Signs (last 24 hours): Temp Pulse Resp BP Pulse Ox 99.1 F 99 H 20 104/64 93 L 01/16/18 06:00 01/16/18 06:00 01/16/18 06:00 01/16/18 06:00 01/16/18 06:00 Intake and Output: 01/16/18 01/16/18 06:59 18:59 Intake Total 660 Output Total 600 Balance 60 - Medications Medications: Current Medications Albuterol/Ipratropium (Duoneb 3 Mg/0.5 Mg (3 Ml) Ud) 3 ml IH Q2H PRN PRN Reason: Shortness of Breath Enoxaparin Sodium (Lovenox) 40 mg SC DAILY JENNIFER PRN Reason: Protocol Last Admin: 01/16/18 09:51 Dose: Not Given Ceftriaxone Sodium (Rocephin 1 Gram Ivpb) 1 gm in 100 mls @ 100 mls/hr IVPB DAILY JENNIFER PRN Reason: Protocol Last Admin: 01/16/18 09:39 Dose: 100 mls/hr Azithromycin (Zithromax 500mg In Ns) 500 mg in 250 mls @ 167 mls/hr IVPB DAILY JENNIFER PRN Reason: Protocol Last Admin: 01/16/18 09:39 Dose: 167 mls/hr Insulin Human Regular (Humulin R Low) 0 units SC ACHS JENNIFER PRN Reason: Protocol Last Admin: 01/16/18 07:43 Dose: Not Given - Labs Labs: 01/16/18 07:00 01/16/18 06:15 - Constitutional Appears: Well - Head Exam Head Exam: ATRAUMATIC, NORMAL INSPECTION, NORMOCEPHALIC - Eye Exam Eye Exam: EOMI, Normal appearance, PERRL Pupil Exam: NORMAL ACCOMODATION, PERRL - ENT Exam ENT Exam: Mucous Membranes Moist, Normal Exam - Neck Exam Neck Exam: Full ROM, Normal Inspection. absent: Lymphadenopathy - Respiratory Exam Respiratory Exam: Clear to Ausculation Bilateral, NORMAL BREATHING PATTERN - Cardiovascular Exam Cardiovascular Exam: REGULAR RHYTHM, +S1, +S2. absent: Murmur - GI/Abdominal Exam GI & Abdominal Exam: Soft, Normal Bowel Sounds. absent: Tenderness - Extremities Exam Extremities Exam: Full ROM, Normal Capillary Refill, Normal Inspection. absent : Joint Swelling, Pedal Edema - Back Exam Back Exam: NORMAL INSPECTION - Neurological Exam Neurological Exam: Alert, Awake, CN II-XII Intact, Normal Gait, Oriented x3 - Psychiatric Exam Psychiatric exam: Normal Affect, Normal Mood - Skin Skin Exam: Dry, Intact, Normal Color, Warm Assessment and Plan (1) Community acquired pneumonia Assessment & Plan: Follow up Mycoplasma, S. pneumo, legionellla Follow up cultures Follow up procal Duonebs Q2 PRN Rocephin 1g QD, Azithro 500 IV QD Status: Acute (2) HIV (human immunodeficiency virus infection) Assessment & Plan: F/U viral Load Follow ID Reccs Status: Acute (3) Diabetes mellitus Assessment & Plan: Diet controlled, does not take any medication Follow up A1C Status: Acute <Ramon Brunson - Last Filed: 01/16/18 16:32> Objective - Vital Signs/Intake and Output Vital Signs (last 24 hours): Temp Pulse Resp BP Pulse Ox 99.1 F 99 H 20 104/64 93 L 01/16/18 06:00 01/16/18 06:00 01/16/18 06:00 01/16/18 06:00 01/16/18 06:00 Intake and Output: 01/16/18 01/16/18 06:59 18:59 Intake Total 660 360 Output Total 600 Balance 60 360 - Medications Medications: Current Medications Albuterol/Ipratropium (Duoneb 3 Mg/0.5 Mg (3 Ml) Ud) 3 ml IH Q2H PRN PRN Reason: Shortness of Breath Enoxaparin Sodium (Lovenox) 40 mg SC DAILY JENNIFER PRN Reason: Protocol Last Admin: 01/16/18 09:51 Dose: Not Given Ceftriaxone Sodium (Rocephin 1 Gram Ivpb) 1 gm in 100 mls @ 100 mls/hr IVPB DAILY JENNIFER PRN Reason: Protocol Last Admin: 01/16/18 09:39 Dose: 100 mls/hr Azithromycin (Zithromax 500mg In Ns) 500 mg in 250 mls @ 167 mls/hr IVPB DAILY JENNIFER PRN Reason: Protocol Last Admin: 01/16/18 09:39 Dose: 167 mls/hr Insulin Human Regular (Humulin R Low) 0 units SC ACHS JENNIFER PRN Reason: Protocol Last Admin: 01/16/18 12:02 Dose: Not Given - Labs Labs: 01/16/18 07:00 01/16/18 06:15 Attending/Attestation - Attestation I have personally seen and examined this patient.: Yes I have fully participated in the care of the patient.: Yes I have reviewed all pertinent clinical information, including history, physical exam and plan: Yes Notes (Text): 01/16/18 16:30 Medical record note made by the resident after discussion with my direction and input after the patient was personally seen and examined by me. I have reviewed the chart and agree that the record accurately reflects by personal performance of the history, physical exam, data review, and medical decision-making, in the course for the patient. I have also personally directed the plan of care. 47M with a PMH of DM was admitted with multifocal bilateral Pneumonia.He is HIV since last one year and is non compliance with his retro viral therapy. We will get ID consults.Patient is on room air.He is afebrile.Cultures are negative.Antibiotics can be changed to oral in 24 hour. Management plan was discussed in detail with patient. Education was provided.
--- NOTE | 2018-01-16 16:58 | CARD ---
APPROVED REPORT EKG Measurement Heart [id number] <Conclusion> Sinus tachycardia Otherwise normal ECG
--- NOTE | 2018-01-16 21:19 | CP.PCM.CON ---
History of Present Illness - History of Present Illness History of Present Illness: Infectious Disease Consultation: January 16, 2018 47 Male with a PMH of DM (No medication, diet controlled) who comes in to the ED with 1.5 wk history of worsening SOB. He states that it became progressively worse until yesterday when he was unable to climb one flight of stairs without stopping to rest and catch his breath. It is associated with a cough with minimally productive sputum, 3 episodes of diarrhea and no nausea or vomiting. Complains of subjective fevers and occasionally shaking chills. Denies any orthopnea or paroxysmal nocturnal dyspnea. Usually he is able to ride his bike or walk fairly long and generally tries to keep in good shape. He became worried when the SOB started to affect his ADLs. 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 Has 3 pets at home but these are not new. No recent incarceration. No sick contacts. No recent travel. No strange foods. Postive HIV test. Off HAART for at least a year. PMHx: DM, HIV PSHx: right calf abscess surgery Allergies: NKDA Social Hx: Ex-smoker stopped 17 years ago. Had smoked 1ppd for about 15 years No illicit drug use Social EtOH Active Medications Albuterol/Ipratropium (Duoneb 3 Mg/0.5 Mg (3 Ml) Ud) 3 ml IH Q2H PRN PRN Reason: Shortness of Breath Enoxaparin Sodium (Lovenox) 40 mg SC DAILY JENNIFER PRN Reason: Protocol Last Admin: 01/16/18 09:51 Dose: Not Given Ceftriaxone Sodium (Rocephin 1 Gram Ivpb) 1 gm in 100 mls @ 100 mls/hr IVPB DAILY JENNIFER PRN Reason: Protocol Last Admin: 01/16/18 09:39 Dose: 100 mls/hr Azithromycin (Zithromax 500mg In Ns) 500 mg in 250 mls @ 167 mls/hr IVPB DAILY JENNIFER PRN Reason: Protocol Last Admin: 01/16/18 09:39 Dose: 167 mls/hr Insulin Human Regular (Humulin R Low) 0 units SC ACHS JENNIFER PRN Reason: Protocol Last Admin: 01/16/18 16:58 Dose: Not Given Family Hx: none ROS: SOB, weakness No chest Pain, melena, hematuria, hematemesis, hematochezia, depression, anxiety , abdominal pain. Past Patient History - Infectious Disease Hx of Infectious Diseases: None - Tetanus Immunizations Tetanus Immunization: Unknown - Past Medical History & Family History Past Medical History?: Yes - Past Social History Smoking Status: Former Smoker - CARDIAC Hx Cardiac Disorders: No - PULMONARY Hx Pneumonia: Yes - NEUROLOGICAL Hx Neurological Disorder: No - HEENT Hx HEENT Problems: No - RENAL Hx Chronic Kidney Disease: No - ENDOCRINE/METABOLIC Hx Endocrine Disorders: No - HEMATOLOGICAL/ONCOLOGICAL Hx Blood Disorders: No - INTEGUMENTARY Hx Dermatological Problems: No - MUSCULOSKELETAL/RHEUMATOLOGICAL Hx Musculoskeletal Disorders: No Hx Falls: No - GASTROINTESTINAL Hx Gastrointestinal Disorders: No - GENITOURINARY/GYNECOLOGICAL Hx Genitourinary Disorders: No - PSYCHIATRIC Hx Psychophysiologic Disorder: No - SURGICAL HISTORY Hx Surgeries: Yes (Right leg debridment) - ANESTHESIA Hx Anesthesia Reactions: No Hx Malignant Hyperthermia: No Meds Allergies/Adverse Reactions: Allergies Allergy/AdvReac Type Severity Reaction Status Date / Time No Known Allergies Allergy Verified 02/13/17 10:11 - Medications Medications: Current Medications Albuterol/Ipratropium (Duoneb 3 Mg/0.5 Mg (3 Ml) Ud) 3 ml IH Q2H PRN PRN Reason: Shortness of Breath Enoxaparin Sodium (Lovenox) 40 mg SC DAILY JENNIFER PRN Reason: Protocol Last Admin: 01/16/18 09:51 Dose: Not Given Ceftriaxone Sodium (Rocephin 1 Gram Ivpb) 1 gm in 100 mls @ 100 mls/hr IVPB DAILY JENNIFER PRN Reason: Protocol Last Admin: 01/16/18 09:39 Dose: 100 mls/hr Azithromycin (Zithromax 500mg In Ns) 500 mg in 250 mls @ 167 mls/hr IVPB DAILY JENNIFER PRN Reason: Protocol Last Admin: 01/16/18 09:39 Dose: 167 mls/hr Insulin Human Regular (Humulin R Low) 0 units SC ACHS JENNIFER PRN Reason: Protocol Last Admin: 01/16/18 16:58 Dose: Not Given Physical Exam - Constitutional Appears: Non-toxic, No Acute Distress, Chronically Ill - Head Exam Head Exam: ATRAUMATIC, NORMOCEPHALIC - Eye Exam Eye Exam: EOMI, PERRL Pupil Exam: NORMAL ACCOMODATION, PERRL - ENT Exam ENT Exam: Mucous Membranes Moist, Normal External Ear Exam, TM's Normal Bilaterally - Neck Exam Neck exam: Positive for: Full Rom, Normal Inspection - Respiratory Exam Respiratory Exam: Decreased Breath Sounds, NORMAL BREATHING PATTERN. absent: Rales, Rhonchi, Wheezes - Cardiovascular Exam Cardiovascular Exam: REGULAR RHYTHM, RRR, +S1, +S2 - GI/Abdominal Exam GI & Abdominal Exam: Normal Bowel Sounds, Soft. absent: Distended, Tenderness - Extremities Exam Extremities exam: Positive for: full ROM, normal inspection - Neurological Exam Neurological exam: Alert, CN II-XII Intact, Oriented x3 - Psychiatric Exam Psychiatric exam: Normal Affect, Normal Mood - Skin Skin Exam: Intact, Normal Color Results - Vital Signs Recent Vital Signs: Last Vital Signs Temp 98.2 F 01/16/18 17:54 Pulse 100 H 01/16/18 18:35 Resp 20 01/16/18 17:54 BP 102/66 01/16/18 17:54 Pulse Ox 93 L 01/16/18 17:54 - Labs Result Diagrams: 01/16/18 07:00 01/16/18 06:15 Labs: Laboratory Results - last 24 hr 01/15/18 01/15/18 01/16/18 15:55 21:44 06:15 WBC RBC Hgb Hct MCV MCH MCHC RDW Plt Count MPV Gran % Lymph % (Auto) [place] % (Auto) Eos % (Auto) Baso % (Auto) Gran # Lymph # (Auto) [place] # (Auto) Eos # (Auto) Baso # (Auto) Sodium 140 Potassium 4.0 Chloride 103 Carbon Dioxide 26 Anion Gap 15 BUN 14 Creatinine 0.7 L Est GFR ( Amer) > 60 Est GFR (Non-Af Amer) > 60 POC Glucose (mg/dL) 114 H Random Glucose 120 H Hemoglobin A1c Calcium 8.6 Phosphorus Magnesium Total Bilirubin 0.5 AST 36 ALT 25 Alkaline Phosphatase 87 Total Protein 6.8 Albumin 3.5 Globulin 3.4 Albumin/Globulin Ratio 1.0 L Procalcitonin TSH 3rd Generation HIV 1&2 Antibody Screen Reactive 01/16/18 01/16/18 01/16/18 06:15 06:15 06:15 WBC RBC Hgb Hct MCV MCH MCHC RDW Plt Count MPV Gran % Lymph % (Auto) [place] % (Auto) Eos % (Auto) Baso % (Auto) Gran # Lymph # (Auto) [place] # (Auto) Eos # (Auto) Baso # (Auto) Sodium Potassium Chloride Carbon Dioxide Anion Gap BUN Creatinine Est GFR ( Amer) Est GFR (Non-Af Amer) POC Glucose (mg/dL) Random Glucose Hemoglobin A1c 7.4 H Calcium Phosphorus Magnesium Total Bilirubin AST ALT Alkaline Phosphatase Total Protein Albumin Globulin Albumin/Globulin Ratio Procalcitonin < 0.05 L TSH 3rd Generation 1.60 HIV 1&2 Antibody Screen 01/16/18 01/16/18 01/16/18 07:00 07:00 07:33 WBC 6.4 RBC 4.31 Hgb 12.4 L Hct 36.0 L MCV 83.5 MCH 28.8 MCHC 34.4 RDW 13.6 Plt Count 208 MPV 9.9 Gran % 76.5 H Lymph % (Auto) 10.5 L [place] % (Auto) 10.5 H Eos % (Auto) 2.3 Baso % (Auto) 0.2 Gran # 4.91 Lymph # (Auto) 0.7 L [place] # (Auto) 0.7 H Eos # (Auto) 0.2 Baso # (Auto) 0.01 Sodium Potassium Chloride Carbon Dioxide Anion Gap BUN Creatinine Est GFR ( Amer) Est GFR (Non-Af Amer) POC Glucose (mg/dL) 118 H Random Glucose Hemoglobin A1c Calcium Phosphorus 3.2 Magnesium 1.9 Total Bilirubin AST ALT Alkaline Phosphatase Total Protein Albumin Globulin Albumin/Globulin Ratio Procalcitonin TSH 3rd Generation HIV 1&2 Antibody Screen 01/16/18 01/16/18 11:55 15:49 WBC RBC Hgb Hct MCV MCH MCHC RDW Plt Count MPV Gran % Lymph % (Auto) [place] % (Auto) Eos % (Auto) Baso % (Auto) Gran # Lymph # (Auto) [place] # (Auto) Eos # (Auto) Baso # (Auto) Sodium Potassium Chloride Carbon Dioxide Anion Gap BUN Creatinine Est GFR ( Amer) Est GFR (Non-Af Amer) POC Glucose (mg/dL) 94 90 Random Glucose Hemoglobin A1c Calcium Phosphorus Magnesium Total Bilirubin AST ALT Alkaline Phosphatase Total Protein Albumin Globulin Albumin/Globulin Ratio Procalcitonin TSH 3rd Generation HIV 1&2 Antibody Screen Assessment & Plan - Assessment and Plan (Free Text) Assessment: 47 yo male with HIV with CT chest showing multifocal bilateral pulmonary infiltrates started on Rocephin and Azithromycin. Bactrim should also be treated for potenital PCP pneumonia. Need CD4 and HIV Viral Load. Obtain HIV Genotype as well. Procalcitonin is low currently. Will need repeat CT scan in 2-3 months. Supportive care. HIV with potential AIDS classification. HAART to be restarted in outpatient setting. Thank you for allowing me to participate in the care of the patient, we will follow with you.
[2018-01-17 06:29] LABS: BASO # 0.01 K/mm3 (0.0-2.0); BASO % 0.1 % (0.0-3.0); EOS # 0.1 (0.0-0.7); EOS % 1.5 % (1.5-5.0); GRAN # 6.17 (1.4-6.5); GRAN % 76.9 % (50.0-68.0); HEMOGLOBIN 12.8 g/dL (14.0-18.0); LYMPH # 0.8 (1.2-3.4); LYMPH % 10.5 % (22.0-35.0); MEAN CELL VOLUME 83.1 fl (80.0-105.0); MEAN CORPUSCULAR HEMOGLOBIN 28.4 pg (25.0-35.0); MEAN CORPUSCULAR HGB CONC 34.2 g/dl (31.0-37.0); MEAN PLATELET VOLUME 9.6 fl (7.0-11.0); MONO # 0.9 (0.1-0.6); RBC 4.5 10^6/uL (3.5-6.1); RED CELL DISTRIBUTION WIDTH 13.7 % (11.5-14.5)
[2018-01-17 06:46] LABS: ALBUMIN 3.6 g/dL (3.0-4.8); ALT/SGPT 29 U/L (7-56); AST/SGOT 37 U/L (17-59); BLOOD UREA NITROGEN 15 mg/dL (7-21); CALCIUM 8.9 mg/dL (8.4-10.5); GFR AFRICAN-AMERICAN > 60; GFR NON-AFRICAN AMERICAN > 60
[2018-01-17] MEDS: Insulin Reg-LOW-Coverage SC SCH ×4 (08:00→22:39)
[2018-01-17] MEDS: cefTRIAXone 1 gm 1 GM/100 ML BAG IVPB SCH (09:39)
[2018-01-17] MEDS: Enoxaparin 40 mg Syringe SC SCH (09:39)
[2018-01-17] MEDS: Tmp-Smz 800 mg-160 mg DS Tab PO SCH ×2 (09:39→18:20)
[2018-01-17] MEDS: Azithromycin 500MG/NS 250ml 500 MG/250 ML BAG IVPB SCH (13:18)
--- NOTE | 2018-01-17 15:02 | CP.PCM.PN ---
Subjective - Date & Time of Evaluation Date of Evaluation: 01/17/18 Time of Evaluation: 14:58 - Subjective Subjective: Patient seen and examined at bedside. States breathing is moderately better but not much change from the time of admission. Tolerating diet. SOB with ambulation. Regular BM. Objective - Vital Signs/Intake and Output Vital Signs (last 24 hours): Temp Pulse Resp BP Pulse Ox 99.2 F 74 20 96/60 L 96 01/17/18 06:00 01/17/18 06:00 01/17/18 06:00 01/17/18 06:00 01/17/18 06:00 Intake and Output: 01/17/18 01/17/18 06:59 18:59 Intake Total 360 Output Total 0 Balance 360 - Medications Medications: Current Medications Albuterol/Ipratropium (Duoneb 3 Mg/0.5 Mg (3 Ml) Ud) 3 ml IH Q2H PRN PRN Reason: Shortness of Breath Enoxaparin Sodium (Lovenox) 40 mg SC DAILY SILVINA PRN Reason: Protocol Last Admin: 01/17/18 09:39 Dose: 40 mg Ceftriaxone Sodium (Rocephin 1 Gram Ivpb) 1 gm in 100 mls @ 100 mls/hr IVPB DAILY SILVINA PRN Reason: Protocol Last Admin: 01/17/18 09:39 Dose: 100 mls/hr Azithromycin (Zithromax 500mg In Ns) 500 mg in 250 mls @ 167 mls/hr IVPB DAILY SILVINA PRN Reason: Protocol Last Admin: 01/17/18 13:18 Dose: 167 mls/hr Insulin Human Regular (Humulin R Low) 0 units SC ACHS SILVINA PRN Reason: Protocol Last Admin: 01/17/18 13:18 Dose: Not Given Trimethoprim/Sulfamethoxazole (Bactrim Ds Tab) 1 tab PO BID SILVINA PRN Reason: Protocol Last Admin: 01/17/18 09:39 Dose: 1 tab - Labs Labs: 01/17/18 05:30 01/17/18 05:30 - Constitutional Appears: Well - Head Exam Head Exam: ATRAUMATIC, NORMAL INSPECTION, NORMOCEPHALIC - Eye Exam Eye Exam: EOMI, Normal appearance, PERRL Pupil Exam: NORMAL ACCOMODATION, PERRL - ENT Exam ENT Exam: Mucous Membranes Moist, Normal Exam - Neck Exam Neck Exam: Full ROM, Normal Inspection. absent: Lymphadenopathy - Respiratory Exam Respiratory Exam: Clear to Ausculation Bilateral, NORMAL BREATHING PATTERN - Cardiovascular Exam Cardiovascular Exam: REGULAR RHYTHM, +S1, +S2. absent: Murmur - GI/Abdominal Exam GI & Abdominal Exam: Soft, Normal Bowel Sounds. absent: Tenderness - Extremities Exam Extremities Exam: Full ROM, Normal Capillary Refill, Normal Inspection. absent : Joint Swelling, Pedal Edema - Back Exam Back Exam: NORMAL INSPECTION - Neurological Exam Neurological Exam: Alert, Awake, CN II-XII Intact, Normal Gait, Oriented x3 - Psychiatric Exam Psychiatric exam: Normal Affect, Normal Mood - Skin Skin Exam: Dry, Intact, Normal Color, Warm Assessment and Plan - Assessment and Plan (Free Text) Assessment: (1) Community acquired pneumonia Assessment & Plan: Pulm Consult (Preethi) Follow up Mycoplasma, S. pneumo, legionellla Follow up cultures procal negative Duonebs Q4 silvina Prednisone 60 PO QD TMPSMX DS PO BID Rocephin 1g QD, Azithro 500 IV QD 6 minute walk test to day and patient became tachycardic in the 140s and 02 sat dropped to 78% Status: Acute (2) HIV (human immunodeficiency virus infection) Assessment & Plan: F/U viral Load and CD 4 count Follow ID Reccs Status: Acute (3) Diabetes mellitus Assessment & Plan: Diet controlled, does not take any medication Follow up A1C Status: Acute
[2018-01-17] MEDS: guaiFENesin 200 mg/10 ml Syrup UD PO SCH ×3 (15:22→22:18)
[2018-01-17] MEDS: Albuterol-Ipratrop 3 mg / 0.5 (3 ml) UD IH SCH ×3 (16:06→23:27)
--- NOTE | 2018-01-17 19:23 | CP.PCM.PN ---
Subjective - Date & Time of Evaluation Date of Evaluation: 01/17/18 Time of Evaluation: 18:20 - Subjective Subjective: Infectious Disease Follow Up: January 17, 2018 47 Male with a PMH of DM (No medication, diet controlled) who comes in to the ED with 1.5 wk history of worsening SOB. He states that it became progressively worse until yesterday when he was unable to climb one flight of stairs without stopping to rest and catch his breath. It is associated with a cough with minimally productive sputum, 3 episodes of diarrhea and no nausea or vomiting. Complains of subjective fevers and occasionally shaking chills. Denies any orthopnea or paroxysmal nocturnal dyspnea. Usually he is able to ride his bike or walk fairly long and generally tries to keep in good shape. He became worried when the SOB started to affect his ADLs. 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 Has 3 pets at home but these are not new. No recent incarceration. No sick contacts. No recent travel. No strange foods. Postive HIV test. Off HAART for at least two years (patient now saying two years ago and was with Dr. Carolina in [place], [place]). On attempts to ambulate, the patient was found to have desaturations down to 70% . PCP is most likely diagnosis. Objective - Vital Signs/Intake and Output Vital Signs (last 24 hours): Temp Pulse Resp BP Pulse Ox 97.2 F L 104 H 20 112/70 97 01/17/18 17:15 01/17/18 18:00 01/17/18 17:15 01/17/18 17:15 01/17/18 17:15 - Medications Medications: Current Medications Albuterol/Ipratropium (Duoneb 3 Mg/0.5 Mg (3 Ml) Ud) 3 ml IH Q4H [facility] Last Admin: 01/17/18 16:06 Dose: 3 ml Enoxaparin Sodium (Lovenox) 40 mg SC DAILY JENNIFER PRN Reason: Protocol Last Admin: 01/17/18 09:39 Dose: 40 mg Guaifenesin (Robitussin) 200 mg PO Q4H JENNIFER Stop: 01/18/18 03:01 Last Admin: 01/17/18 18:19 Dose: 200 mg Ceftriaxone Sodium (Rocephin 1 Gram Ivpb) 1 gm in 100 mls @ 100 mls/hr IVPB DAILY JENNIFER PRN Reason: Protocol Last Admin: 01/17/18 09:39 Dose: 100 mls/hr Azithromycin (Zithromax 500mg In Ns) 500 mg in 250 mls @ 167 mls/hr IVPB DAILY JENNIFER PRN Reason: Protocol Last Admin: 01/17/18 13:18 Dose: 167 mls/hr Insulin Human Regular (Humulin R Low) 0 units SC ACHS JENNIFER PRN Reason: Protocol Last Admin: 01/17/18 18:14 Dose: Not Given Prednisone (Prednisone Tab) 60 mg PO DAILY JENNIFER Last Admin: 01/17/18 15:22 Dose: Not Given Trimethoprim/Sulfamethoxazole (Bactrim Ds Tab) 1 tab PO BID JENNIFER PRN Reason: Protocol Last Admin: 01/17/18 18:20 Dose: 1 tab - Labs Labs: 01/17/18 05:30 01/17/18 05:30 - Constitutional Appears: Non-toxic, No Acute Distress, Chronically Ill - Head Exam Head Exam: ATRAUMATIC, NORMOCEPHALIC - Eye Exam Eye Exam: EOMI, PERRL Pupil Exam: NORMAL ACCOMODATION, PERRL - ENT Exam ENT Exam: Mucous Membranes Moist, Normal External Ear Exam, TM's Normal Bilaterally - Neck Exam Neck Exam: Full ROM, Normal Inspection - Respiratory Exam Respiratory Exam: Decreased Breath Sounds, NORMAL BREATHING PATTERN. absent: Rales, Rhonchi, Wheezes - Cardiovascular Exam Cardiovascular Exam: REGULAR RHYTHM, RRR, +S1, +S2 - GI/Abdominal Exam GI & Abdominal Exam: Soft, Normal Bowel Sounds. absent: Distended, Tenderness - Extremities Exam Extremities Exam: Full ROM, Normal Inspection - Neurological Exam Neurological Exam: Alert, CN II-XII Intact, Oriented x3 - Psychiatric Exam Psychiatric exam: Normal Affect, Normal Mood - Skin Skin Exam: Intact, Normal Color Assessment and Plan - Assessment and Plan (Free Text) Assessment: 47 yo male with HIV with CT chest showing multifocal bilateral pulmonary infiltrates started on Rocephin and Azithromycin. Bactrim should also be treated for potenital PCP pneumonia. Need CD4 and HIV Viral Load. Obtain HIV Genotype as well. Procalcitonin is low currently. Will need repeat CT scan in 2-3 months. Patient with desaturation down to 70% on light ambulation. Maintain patient on PO Bactrim DS BID. Supportive care. HIV with potential AIDS classification. Awaiting CD4 and HIV Viral load. HAART to be restarted in outpatient setting. Thank you for allowing me to participate in the care of the patient, we will follow with you.
--- NOTE | 2018-01-17 19:27 | CARD ---
APPROVED REPORT EXAM: Two-dimensional and M-mode echocardiogram with Doppler and color Doppler. INDICATION LV FUNCTION,PNEUMONIA 2D DIMENSIONS Left Atrium (2D)4.3 (1.6-4.0cm)IVSd1.1 (0.7-1.1cm) LVDd3.8 (3.9-5.9cm)PWd1.2 (0.7-1.1cm) LVDs2.7 (2.5-4.0cm)FS (%) 27.8 % LVEF (%)54.6 (>50%) M-Mode DIMENSIONS Aortic Root3.80 (2.2-3.7cm)Aortic Cusp Exc.2.30 (1.5-2.0cm) Aortic Valve AoV Peak Zuvalups316.0cm/Gerber Peak GR.5mmHg Mitral Valve MV E Vczziimu65.0cm/sMV A Tevtldsl83.5cm/sE/A ratio0.9 TDI Lateral E' Peak V12.60cm/sMedial E' Peak V9.16cm/sE/Lateral E'4.0 E/Medial E'5.5 Pulmonary Valve PV Peak Dpbyvkbz03.7cm/sPV Peak Grad.2mmHg Tricuspid Valve TR Peak Lahubzde005mg/sRAP [id number] Peak Gr.38mmHg [id number] LEFT VENTRICLE The left ventricle is normal size. There is normal left ventricular wall thickness. The left ventricular function is normal. The left ventricular ejection fraction is within the normal range. There is normal LV segmental wall motion. Transmitral Doppler flow pattern is Grade I-abnormal relaxation pattern. RIGHT VENTRICLE The right ventricle is normal size. There is normal right ventricular wall thickness. The right ventricular systolic function is normal. ATRIA The left atrium is borderline dilated. The right atrium size is normal. AORTIC VALVE The aortic valve is normal in structure. No aortic regurgitation is present. There is no aortic valvular stenosis. MITRAL VALVE The mitral valve is normal in structure. There is no mitral valve regurgitation noted. TRICUSPID VALVE There is mild to moderate tricuspid regurgitation. There is mild to moderate pulmonary hypertension. PULMONIC VALVE There is mild pulmonic valvular regurgitation. GREAT VESSELS The aortic root is mildly enlarged. The IVC is normal in size and collapses >50% with inspiration. PERICARDIAL EFFUSION There is no pericardial effusion. <Conclusion> The left ventricle is normal size. There is normal left ventricular wall thickness. The left ventricular function is normal. The left ventricular ejection fraction is within the normal range. There is normal LV segmental wall motion. Transmitral Doppler flow pattern is Grade I-abnormal relaxation pattern. There is mild to moderate tricuspid regurgitation. There is mild to moderate pulmonary hypertension.
[2018-01-18] MEDS: guaiFENesin 200 mg/10 ml Syrup UD PO SCH (02:00)
[2018-01-18] MEDS: Albuterol-Ipratrop 3 mg / 0.5 (3 ml) UD IH SCH ×5 (03:55→20:27)
[2018-01-18 06:32] LABS: BASO # 0.01 K/mm3 (0.0-2.0); BASO % 0.1 % (0.0-3.0); EOS # 0.1 (0.0-0.7); EOS % 0.9 % (1.5-5.0); GRAN # 5.99 (1.4-6.5); GRAN % 81.3 % (50.0-68.0); HEMOGLOBIN 12.9 g/dL (14.0-18.0); LYMPH # 0.5 (1.2-3.4); LYMPH % 6.6 % (22.0-35.0); MEAN CELL VOLUME 84.2 fl (80.0-105.0); MEAN CORPUSCULAR HEMOGLOBIN 28.7 pg (25.0-35.0); MEAN CORPUSCULAR HGB CONC 34.1 g/dl (31.0-37.0); MEAN PLATELET VOLUME 9.9 fl (7.0-11.0); MONO # 0.8 (0.1-0.6); MONO % 11.1 % (1.0-6.0); RBC 4.49 10^6/uL (3.5-6.1); RED CELL DISTRIBUTION WIDTH 13.8 % (11.5-14.5); WHITE BLOOD COUNT 7.4 10^3/ul (4.5-11.0)
[2018-01-18 07:07] LABS: HDL CHOLESTEROL 30 mg/dL (29-60)
[2018-01-18 07:18] LABS: LDL CHOLESTEROL 73 mg/dL (0-129)
[2018-01-18 07:24] LABS: % CD4 (T HELPER CELL) 1 Percent (30-61); % CD8 (SUPPRESSOR T CELL) 57 Percent (12-42); ABSOLUTE CD4 CELLS <20 Cells/mcL (490-1740); ABSOLUTE CD8 CELLS 395 Cells/mcL (180-1170); ABSOLUTE LYMPHOCYTES 694 Cells/mcL (850-3900); HELPER/SUPPRESSOR RATIO 0.01 Ratio (0.86-5.00)
[2018-01-18 07:39] LABS: ALB/GLOB RATIO 1.1 (1.1-1.8); ALBUMIN 3.7 g/dL (3.0-4.8); ALT/SGPT 33 U/L (7-56); AST/SGOT 37 U/L (17-59); BLOOD UREA NITROGEN 14 mg/dL (7-21); CALCIUM 8.7 mg/dL (8.4-10.5); GFR AFRICAN-AMERICAN > 60; GFR NON-AFRICAN AMERICAN > 60
[2018-01-18] MEDS: Insulin Reg-LOW-Coverage SC SCH ×4 (07:44→21:39)
[2018-01-18] MEDS: Azithromycin 500MG/NS 250ml 500 MG/250 ML BAG IVPB SCH (09:08)
[2018-01-18] MEDS: Tmp-Smz 800 mg-160 mg DS Tab PO SCH ×2 (09:08→17:37)
[2018-01-18] MEDS: Enoxaparin 40 mg Syringe SC SCH (09:08)
[2018-01-18] MEDS: cefTRIAXone 1 gm 1 GM/100 ML BAG IVPB SCH (09:08)
--- NOTE | 2018-01-18 11:47 | CP.PCM.PN ---
<Tima Conrad - Last Filed: 01/18/18 11:45> Subjective - Date & Time of Evaluation Date of Evaluation: 01/18/18 Time of Evaluation: 11:45 - Subjective Subjective: Patient seen and examined at bedside. States breathing is better. Tolerating diet. Having regular BMs. Ambulating yesterday desaturated to the 70-80 and was tachycardic. Objective - Vital Signs/Intake and Output Vital Signs (last 24 hours): Temp Pulse Resp BP Pulse Ox 99.2 F 88 22 93/60 L 95 01/18/18 07:00 01/18/18 07:00 01/18/18 07:00 01/18/18 07:00 01/18/18 07:00 Intake and Output: 01/18/18 01/18/18 06:59 18:59 Intake Total 900 Output Total 0 Balance 900 - Medications Medications: Current Medications Albuterol/Ipratropium (Duoneb 3 Mg/0.5 Mg (3 Ml) Ud) 3 ml IH Q4H [facility] Last Admin: 01/18/18 11:19 Dose: 3 ml Enoxaparin Sodium (Lovenox) 40 mg SC DAILY SILVINA PRN Reason: Protocol Last Admin: 01/18/18 09:08 Dose: 40 mg Ceftriaxone Sodium (Rocephin 1 Gram Ivpb) 1 gm in 100 mls @ 100 mls/hr IVPB DAILY SILVINA PRN Reason: Protocol Last Admin: 01/18/18 09:08 Dose: 100 mls/hr Azithromycin (Zithromax 500mg In Ns) 500 mg in 250 mls @ 167 mls/hr IVPB DAILY SILVINA PRN Reason: Protocol Last Admin: 01/18/18 09:08 Dose: 167 mls/hr Insulin Human Regular (Humulin R Low) 0 units SC ACHS SILVINA PRN Reason: Protocol Last Admin: 01/18/18 07:44 Dose: Not Given Prednisone (Prednisone Tab) 60 mg PO DAILY [facility] Last Admin: 01/18/18 09:08 Dose: 60 mg Trimethoprim/Sulfamethoxazole (Bactrim Ds Tab) 1 tab PO BID SILVINA PRN Reason: Protocol Last Admin: 01/18/18 09:08 Dose: 1 tab - Labs Labs: 01/18/18 05:15 01/18/18 05:15 - Constitutional Appears: Well - Head Exam Head Exam: ATRAUMATIC, NORMAL INSPECTION, NORMOCEPHALIC - Eye Exam Eye Exam: EOMI, Normal appearance, PERRL Pupil Exam: NORMAL ACCOMODATION, PERRL - ENT Exam ENT Exam: Mucous Membranes Moist, Normal Exam - Neck Exam Neck Exam: Full ROM, Normal Inspection. absent: Lymphadenopathy - Respiratory Exam Respiratory Exam: Clear to Ausculation Bilateral, NORMAL BREATHING PATTERN - Cardiovascular Exam Cardiovascular Exam: REGULAR RHYTHM, +S1, +S2. absent: Murmur - GI/Abdominal Exam GI & Abdominal Exam: Soft, Normal Bowel Sounds. absent: Tenderness - Extremities Exam Extremities Exam: Full ROM, Normal Capillary Refill, Normal Inspection. absent : Joint Swelling, Pedal Edema - Back Exam Back Exam: NORMAL INSPECTION - Neurological Exam Neurological Exam: Alert, Awake, CN II-XII Intact, Normal Gait, Oriented x3 - Psychiatric Exam Psychiatric exam: Normal Affect, Normal Mood - Skin Skin Exam: Dry, Intact, Normal Color, Warm Assessment and Plan - Assessment and Plan (Free Text) Assessment: (1) Community acquired pneumonia Assessment & Plan: Pulm Consult (Preethi) Follow up Mycoplasma, S. pneumo, legionellla Follow up cultures procal negative Duonebs Q4 silvina Prednisone 60 PO QD TMPSMX DS PO BID Rocephin 1g QD, Azithro 500 IV QD 6 minute walk test to day and patient became tachycardic in the 140s and 02 sat dropped to 78% Status: Acute (2) HIV (human immunodeficiency virus infection) Assessment & Plan: F/U viral Load CD4 <20 Follow ID Reccs Status: Acute (3) Diabetes mellitus Assessment & Plan: Diet controlled, does not take any medication Follow up A1C Status: Acute <Ramon Brunson - Last Filed: 01/18/18 16:04> Objective - Vital Signs/Intake and Output Vital Signs (last 24 hours): Temp Pulse Resp BP Pulse Ox 99.2 F 104 H 22 93/60 L 95 01/18/18 07:00 01/18/18 14:00 01/18/18 07:00 01/18/18 07:00 01/18/18 07:00 Intake and Output: 01/18/18 01/18/18 06:59 18:59 Intake Total 900 960 Output Total 0 Balance 900 960 - Medications Medications: Current Medications Albuterol/Ipratropium (Duoneb 3 Mg/0.5 Mg (3 Ml) Ud) 3 ml IH Q4H [facility] Last Admin: 01/18/18 15:39 Dose: 3 ml Enoxaparin Sodium (Lovenox) 40 mg SC DAILY SILVINA PRN Reason: Protocol Last Admin: 01/18/18 09:08 Dose: 40 mg Ceftriaxone Sodium (Rocephin 1 Gram Ivpb) 1 gm in 100 mls @ 100 mls/hr IVPB DAILY SILVINA PRN Reason: Protocol Last Admin: 01/18/18 09:08 Dose: 100 mls/hr Azithromycin (Zithromax 500mg In Ns) 500 mg in 250 mls @ 167 mls/hr IVPB DAILY SILVINA PRN Reason: Protocol Last Admin: 01/18/18 09:08 Dose: 167 mls/hr Insulin Human Regular (Humulin R Low) 0 units SC ACHS SILVINA PRN Reason: Protocol Last Admin: 01/18/18 12:25 Dose: 1 units Prednisone (Prednisone Tab) 60 mg PO DAILY [facility] Last Admin: 01/18/18 09:08 Dose: 60 mg Trimethoprim/Sulfamethoxazole (Bactrim Ds Tab) 1 tab PO BID SILVINA PRN Reason: Protocol Last Admin: 01/18/18 09:08 Dose: 1 tab - Labs Labs: 01/18/18 05:15 01/18/18 05:15 Attending/Attestation - Attestation I have personally seen and examined this patient.: Yes I have fully participated in the care of the patient.: Yes I have reviewed all pertinent clinical information, including history, physical exam and plan: Yes Notes (Text): 01/18/18 16:01 Medical record note made by the resident after discussion with my direction and input after the patient was personally seen and examined by me. I have reviewed the chart and agree that the record accurately reflects by personal performance of the history, physical exam, data review, and medical decision-making, in the course for the patient. I have also personally directed the plan of care. 47M with a PMH of DM, HIV not compliance with medication was admitted with multifocal bilateral Pneumonia. Patient blood cultures are negative , Procalcitonin level is normal.Patient is getting hypoxic and tachycardia with exertion. Etiology of patchy infiltrate is not clear, could be PJP pneumonia.He is on Rocephin/Azithromycn and Bactrim as Per ID and on on oral Prednisone 60 mg daily,Pulmonary is consulted for possible Bronchoscopy. Risk Management was consulted regarding exposure of patient partner.Public health department will be contacted regarding this issue. Management plan was discussed in detail with patient. Education was provided. 01/18/18 16:04
--- NOTE | 2018-01-18 17:52 | CP.PCM.PN ---
Subjective - Date & Time of Evaluation Date of Evaluation: 01/18/18 Time of Evaluation: 17:00 - Subjective Subjective: Infectious Disease Follow Up: January 18, 2018 47 Male with a PMH of DM (No medication, diet controlled) who comes in to the ED with 1.5 wk history of worsening SOB. He states that it became progressively worse until yesterday when he was unable to climb one flight of stairs without stopping to rest and catch his breath. It is associated with a cough with minimally productive sputum, 3 episodes of diarrhea and no nausea or vomiting. Complains of subjective fevers and occasionally shaking chills. Denies any orthopnea or paroxysmal nocturnal dyspnea. Usually he is able to ride his bike or walk fairly long and generally tries to keep in good shape. He became worried when the SOB started to affect his ADLs. 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 Has 3 pets at home but these are not new. No recent incarceration. No sick contacts. No recent travel. No strange foods. Postive HIV test. Off HAART for at least two years (patient now saying two years ago and was with Dr. Carolina in [place], [place]). On attempts to ambulate yesterday, the patient was found to have desaturations down to 70%. PCP is most likely diagnosis. CD4 < 20. HIV Viral Load pending. Objective - Vital Signs/Intake and Output Vital Signs (last 24 hours): Temp Pulse Resp BP Pulse Ox 99.2 F 104 H 22 93/60 L 95 01/18/18 07:00 01/18/18 14:00 01/18/18 07:00 01/18/18 07:00 01/18/18 07:00 Intake and Output: 01/18/18 01/18/18 06:59 18:59 Intake Total 900 960 Output Total 0 Balance 900 960 - Medications Medications: Current Medications Albuterol/Ipratropium (Duoneb 3 Mg/0.5 Mg (3 Ml) Ud) 3 ml IH Q4H [facility] Last Admin: 01/18/18 15:39 Dose: 3 ml Enoxaparin Sodium (Lovenox) 40 mg SC DAILY [facility] PRN Reason: Protocol Last Admin: 01/18/18 09:08 Dose: 40 mg Ceftriaxone Sodium (Rocephin 1 Gram Ivpb) 1 gm in 100 mls @ 100 mls/hr IVPB DAILY JENNIFER PRN Reason: Protocol Last Admin: 01/18/18 09:08 Dose: 100 mls/hr Azithromycin (Zithromax 500mg In Ns) 500 mg in 250 mls @ 167 mls/hr IVPB DAILY JENNIFER PRN Reason: Protocol Last Admin: 01/18/18 09:08 Dose: 167 mls/hr Insulin Human Regular (Humulin R Low) 0 units SC ACHS JENNIFER PRN Reason: Protocol Last Admin: 01/18/18 17:37 Dose: 1 units Prednisone (Prednisone Tab) 60 mg PO DAILY [facility] Last Admin: 01/18/18 09:08 Dose: 60 mg Trimethoprim/Sulfamethoxazole (Bactrim Ds Tab) 1 tab PO BID [facility] PRN Reason: Protocol Last Admin: 01/18/18 17:37 Dose: 1 tab - Labs Labs: 01/18/18 05:15 01/18/18 05:15 - Constitutional Appears: Non-toxic, No Acute Distress, Chronically Ill - Head Exam Head Exam: ATRAUMATIC, NORMOCEPHALIC - Eye Exam Eye Exam: EOMI, PERRL Pupil Exam: NORMAL ACCOMODATION, PERRL - ENT Exam ENT Exam: Mucous Membranes Moist, Normal External Ear Exam, TM's Normal Bilaterally - Neck Exam Neck Exam: Full ROM, Normal Inspection - Respiratory Exam Respiratory Exam: Decreased Breath Sounds, NORMAL BREATHING PATTERN. absent: Rales, Rhonchi, Wheezes - Cardiovascular Exam Cardiovascular Exam: REGULAR RHYTHM, RRR, +S1, +S2 - GI/Abdominal Exam GI & Abdominal Exam: Soft, Normal Bowel Sounds. absent: Distended, Tenderness - Extremities Exam Extremities Exam: Full ROM, Normal Inspection - Neurological Exam Neurological Exam: Alert, Awake, CN II-XII Intact, Oriented x3 - Psychiatric Exam Psychiatric exam: Normal Affect, Normal Mood - Skin Skin Exam: Intact, Normal Color Assessment and Plan - Assessment and Plan (Free Text) Assessment: 47 yo male with HIV with CT chest showing multifocal bilateral pulmonary infiltrates started on Rocephin and Azithromycin. Bactrim should also be treated for potenital PCP pneumonia. Need CD4 and HIV Viral Load. Obtain HIV Genotype as well. Procalcitonin is low currently. Will need repeat CT scan in 2-3 months. Patient with desaturation down to 70% on light ambulation. Maintain patient on PO Bactrim DS BID. PCP pneumonia the most likely diagnosis. Supportive care. HIV with potential AIDS classification. Awaiting CD4 and HIV Viral load. CD4 < 20. Recheck procalcitonin. HAART to be restarted in outpatient setting. Thank you for allowing me to participate in the care of the patient, we will follow with you.
--- NOTE | 2018-01-18 18:58 | CARD ---
APPROVED REPORT EKG Measurement Heart [id number] <Conclusion> Sinus tachycardia Otherwise normal ECG
[2018-01-18 19:45] VITALS: RESP 20
[2018-01-19] MEDS: Albuterol-Ipratrop 3 mg / 0.5 (3 ml) UD IH SCH ×7 (01:00→23:41)
[2018-01-19 02:29] LABS: SOURCE SERUM
[2018-01-19] MEDS: Insulin Reg-LOW-Coverage SC SCH ×4 (08:30→22:20)
[2018-01-19] MEDS: Tmp-Smz 800 mg-160 mg DS Tab PO SCH ×2 (09:17→18:29)
[2018-01-19] MEDS: Enoxaparin 40 mg Syringe SC SCH (09:19)
[2018-01-19] MEDS: cefTRIAXone 1 gm 1 GM/100 ML BAG IVPB SCH (09:19)
--- NOTE | 2018-01-19 10:19 | CP.PCM.PN ---
<Oscar Ash - Last Filed: 01/19/18 10:26> Subjective - Date & Time of Evaluation Date of Evaluation: 01/19/18 Time of Evaluation: 06:00 - Subjective Subjective: Patient seen and evaluated bedside. No acute issues overnight. Patient says she feels better, and says his breathing has improved. Patient denies chest pain, abdominal pain, fever, chills, cough or any other complaints at this time. Objective - Vital Signs/Intake and Output Vital Signs (last 24 hours): Temp Pulse Resp BP Pulse Ox 98.3 F 94 H 20 105/63 94 L 01/19/18 09:16 01/19/18 09:16 01/18/18 18:00 01/19/18 09:16 01/19/18 09:16 Intake and Output: 01/19/18 01/19/18 06:59 18:59 Intake Total 600 Balance 600 - Medications Medications: Current Medications Albuterol/Ipratropium (Duoneb 3 Mg/0.5 Mg (3 Ml) Ud) 3 ml IH Q4H [facility] Last Admin: 01/19/18 07:50 Dose: 3 ml Enoxaparin Sodium (Lovenox) 40 mg SC DAILY [facility] PRN Reason: Protocol Last Admin: 01/19/18 09:19 Dose: 40 mg Insulin Human Regular (Humulin R Low) 0 units SC ACHS [facility] PRN Reason: Protocol Last Admin: 01/19/18 08:30 Dose: 1 units Prednisone (Prednisone Tab) 60 mg PO DAILY [facility] Last Admin: 01/19/18 09:17 Dose: 60 mg Trimethoprim/Sulfamethoxazole (Bactrim Ds Tab) 1 tab PO BID [facility] PRN Reason: Protocol Last Admin: 01/19/18 09:17 Dose: 1 tab - Labs Labs: 01/18/18 05:15 01/18/18 05:15 - Constitutional Appears: Non-toxic, No Acute Distress - Head Exam Head Exam: ATRAUMATIC, NORMAL INSPECTION, NORMOCEPHALIC - Eye Exam Eye Exam: EOMI, Normal appearance - ENT Exam ENT Exam: Mucous Membranes Moist - Respiratory Exam Respiratory Exam: Clear to Ausculation Bilateral, NORMAL BREATHING PATTERN - Cardiovascular Exam Cardiovascular Exam: REGULAR RHYTHM, +S1, +S2 - GI/Abdominal Exam GI & Abdominal Exam: Soft. absent: Tenderness - Extremities Exam Extremities Exam: absent: Pedal Edema - Neurological Exam Neurological Exam: Alert, Awake, Oriented x3 Assessment and Plan - Assessment and Plan (Free Text) Assessment: 47 year old HIV positive male with DM being treated or possible PCP pneumonia. Plan: Community acquired pneumonia -Pulm Consult, follow recs -Follow up Mycoplasma, legionellla -S. pneumo not detected -PCP test positive in serum -Follow up cultures -procal negative -Duonebs Q4 jennifer -Prednisone 60 PO QD -TMPSMX DS PO BID -Azithro 500 IV QD HIV (human immunodeficiency virus infection) -Viral Load follow up -CD4 <20 -Follow ID Recs Diabetes mellitus -Diet controlled, does not take any medication -Follow up A1C <Trish Dallas - Last Filed: 01/19/18 11:47> Objective - Vital Signs/Intake and Output Vital Signs (last 24 hours): Temp Pulse Resp BP Pulse Ox 98.3 F 94 H 20 105/63 94 L 01/19/18 09:16 01/19/18 09:16 01/18/18 18:00 01/19/18 09:16 01/19/18 09:16 Intake and Output: 01/19/18 01/19/18 06:59 18:59 Intake Total 600 Balance 600 - Medications Medications: Current Medications Albuterol/Ipratropium (Duoneb 3 Mg/0.5 Mg (3 Ml) Ud) 3 ml IH Q4H [facility] Last Admin: 01/19/18 07:50 Dose: 3 ml Enoxaparin Sodium (Lovenox) 40 mg SC DAILY [facility] PRN Reason: Protocol Last Admin: 01/19/18 09:19 Dose: 40 mg Azithromycin (Zithromax 500mg In Ns) 500 mg in 250 mls @ 167 mls/hr IVPB DAILY [facility] PRN Reason: Protocol Insulin Human Regular (Humulin R Low) 0 units SC ACHS [facility] PRN Reason: Protocol Last Admin: 01/19/18 08:30 Dose: 1 units Prednisone (Prednisone Tab) 60 mg PO DAILY [facility] Last Admin: 01/19/18 09:17 Dose: 60 mg Trimethoprim/Sulfamethoxazole (Bactrim Ds Tab) 1 tab PO BID [facility] PRN Reason: Protocol Last Admin: 01/19/18 09:17 Dose: 1 tab - Labs Labs: 01/18/18 05:15 01/18/18 05:15 Attending/Attestation - Attestation I have personally seen and examined this patient.: Yes I have fully participated in the care of the patient.: Yes I have reviewed all pertinent clinical information, including history, physical exam and plan: Yes Notes (Text): 01/19/18 11:31 47 year old with past medical history of diabetes and HIV with history of noncompliance who is admitted with multifocal pneumonia. CD4 count is low and he is being treated for possible PCP. He is on azithromycin, bactrim and po steroids. He was hypoxic few days prior and will need 6 minute walk test prior to discharge. He is being followed by ID and pulmonary consultation was requested as well. He was counselled on safe sex practices and informing his partner. Risk management was consulted as well and public health department will be contacted as well. Trish Dallas MD Hospitalist.
[2018-01-19] MEDS: Azithromycin 500MG/NS 250ml 500 MG/250 ML BAG IVPB SCH ×2 (11:02→12:05)
--- NOTE | 2018-01-19 16:14 | CP.PCM.PN ---
Subjective - Date & Time of Evaluation Date of Evaluation: 01/19/18 Time of Evaluation: 15:00 - Subjective Subjective: Infectious Disease Follow Up: January 19, 2018 47 Male with a PMH of DM (No medication, diet controlled) who comes in to the ED with 1.5 wk history of worsening SOB. He states that it became progressively worse until yesterday when he was unable to climb one flight of stairs without stopping to rest and catch his breath. It is associated with a cough with minimally productive sputum, 3 episodes of diarrhea and no nausea or vomiting. Complains of subjective fevers and occasionally shaking chills. Denies any orthopnea or paroxysmal nocturnal dyspnea. Usually he is able to ride his bike or walk fairly long and generally tries to keep in good shape. He became worried when the SOB started to affect his ADLs. 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 Has 3 pets at home but these are not new. No recent incarceration. No sick contacts. No recent travel. No strange foods. Postive HIV test. Off HAART for at least two years (patient now saying two years ago and was with Dr. Pickard in [place], [place], more recently he had gone to the [facility] at [facility] for about 6 months but stopped as he did not like that clinic). On attempts to ambulate yesterday, the patient was found to have desaturations down to 70%. PCP is most likely diagnosis. CD4 < 20. HIV Viral Load still pending. He has a girlfriend that he has not told about his HIV condition and at this point and current does not want to. Encouraged patient that he should inform his partner. Objective - Vital Signs/Intake and Output Vital Signs (last 24 hours): Temp Pulse Resp BP Pulse Ox 98.3 F 94 H 20 105/63 94 L 01/19/18 09:16 01/19/18 09:16 01/18/18 18:00 01/19/18 09:16 01/19/18 09:16 Intake and Output: 01/19/18 01/19/18 06:59 18:59 Intake Total 600 540 Balance 600 540 - Medications Medications: Current Medications Albuterol/Ipratropium (Duoneb 3 Mg/0.5 Mg (3 Ml) Ud) 3 ml IH Q4H [facility] Last Admin: 01/19/18 15:20 Dose: 3 ml Enoxaparin Sodium (Lovenox) 40 mg SC DAILY [facility] PRN Reason: Protocol Last Admin: 01/19/18 09:19 Dose: 40 mg Azithromycin (Zithromax 500mg In Ns) 500 mg in 250 mls @ 167 mls/hr IVPB DAILY [facility] PRN Reason: Protocol Last Admin: 01/19/18 12:05 Dose: Not Given Insulin Human Regular (Humulin R Low) 0 units SC ACHS [facility] PRN Reason: Protocol Last Admin: 01/19/18 12:33 Dose: 1 units Prednisone (Prednisone Tab) 60 mg PO DAILY [facility] Last Admin: 01/19/18 09:17 Dose: 60 mg Trimethoprim/Sulfamethoxazole (Bactrim Ds Tab) 1 tab PO BID [facility] PRN Reason: Protocol Last Admin: 01/19/18 09:17 Dose: 1 tab - Labs Labs: 01/18/18 05:15 01/18/18 05:15 - Constitutional Appears: Non-toxic, No Acute Distress, Chronically Ill - Head Exam Head Exam: ATRAUMATIC, NORMOCEPHALIC - Eye Exam Eye Exam: EOMI, PERRL Pupil Exam: NORMAL ACCOMODATION, PERRL - ENT Exam ENT Exam: Mucous Membranes Moist, Normal External Ear Exam, TM's Normal Bilaterally - Neck Exam Neck Exam: Full ROM, Normal Inspection - Respiratory Exam Respiratory Exam: Clear to Ausculation Bilateral, NORMAL BREATHING PATTERN. absent: Rales, Rhonchi, Wheezes - Cardiovascular Exam Cardiovascular Exam: REGULAR RHYTHM, RRR, +S1, +S2 - GI/Abdominal Exam GI & Abdominal Exam: Soft, Normal Bowel Sounds. absent: Distended, Tenderness - Extremities Exam Extremities Exam: Full ROM, Normal Inspection - Neurological Exam Neurological Exam: Alert, Awake, CN II-XII Intact, Oriented x3 - Psychiatric Exam Psychiatric exam: Normal Affect, Normal Mood - Skin Skin Exam: Intact, Normal Color Assessment and Plan - Assessment and Plan (Free Text) Assessment: 47 yo male with HIV with CT chest showing multifocal bilateral pulmonary infiltrates started on Rocephin and Azithromycin. Bactrim should also be treated for potenital PCP pneumonia. Need CD4 and HIV Viral Load. Obtain HIV Genotype as well. Procalcitonin is low currently. Will need repeat CT scan in 2-3 months. Patient with desaturation down to 70% on light ambulation. Maintain patient on PO Bactrim DS BID. PCP pneumonia the most likely diagnosis. Supportive care. HIV with potential AIDS classification. Awaiting CD4 and HIV Viral load. CD4 < 20. Recheck procalcitonin. Patient has uninformed partner. [place] Department of [facility] should be informed that patient has a partner who would need notification. HAART to be restarted in outpatient setting. Thank you for allowing me to participate in the care of the patient, we will follow with you.
[2018-01-20] MEDS: Albuterol-Ipratrop 3 mg / 0.5 (3 ml) UD IH SCH ×6 (04:16→23:36)
[2018-01-20] MEDS: Insulin Reg-LOW-Coverage SC SCH ×4 (08:30→22:06)
[2018-01-20] MEDS: Tmp-Smz 800 mg-160 mg DS Tab PO SCH ×3 (09:20→17:47)
[2018-01-20] MEDS: Enoxaparin 40 mg Syringe SC SCH (09:20)
[2018-01-20] MEDS: Azithromycin 500MG/NS 250ml 500 MG/250 ML BAG IVPB SCH ×2 (09:25→11:00)
--- NOTE | 2018-01-20 11:59 | CP.PCM.PN ---
<JohanOwen - Last Filed: 01/20/18 11:55> Subjective - Date & Time of Evaluation Date of Evaluation: 01/20/18 Time of Evaluation: 11:55 - Subjective Subjective: Medicine progress note: Dr. Dallas Patient seen and examined at bedside, states that his breathing is much better today. One episode of tachycardia overnight. No other complaints. Objective - Vital Signs/Intake and Output Vital Signs (last 24 hours): Temp Pulse Resp BP Pulse Ox 97 F L 88 20 90/54 L 93 L 01/20/18 08:16 01/20/18 08:16 01/20/18 08:16 01/20/18 08:16 01/20/18 08:16 Intake and Output: 01/20/18 01/20/18 06:59 18:59 Intake Total 120 Output Total 0 Balance 120 - Medications Medications: Current Medications Albuterol/Ipratropium (Duoneb 3 Mg/0.5 Mg (3 Ml) Ud) 3 ml IH Q4H [facility] Last Admin: 01/20/18 11:15 Dose: 3 ml Enoxaparin Sodium (Lovenox) 40 mg SC DAILY [facility] PRN Reason: Protocol Last Admin: 01/20/18 09:20 Dose: 40 mg Azithromycin (Zithromax 500mg In Ns) 500 mg in 250 mls @ 167 mls/hr IVPB DAILY [facility] PRN Reason: Protocol Insulin Human Regular (Humulin R Low) 0 units SC ACHS [facility] PRN Reason: Protocol Last Admin: 01/20/18 08:30 Dose: 1 units Prednisone (Prednisone Tab) 60 mg PO DAILY [facility] Last Admin: 01/20/18 09:20 Dose: 60 mg Trimethoprim/Sulfamethoxazole (Bactrim Ds Tab) 1 tab PO BID [facility] PRN Reason: Protocol - Labs Labs: 01/18/18 05:15 01/18/18 05:15 - Constitutional Appears: Well - Head Exam Head Exam: ATRAUMATIC, NORMAL INSPECTION, NORMOCEPHALIC - Eye Exam Eye Exam: EOMI, Normal appearance, PERRL Pupil Exam: NORMAL ACCOMODATION, PERRL - ENT Exam ENT Exam: Mucous Membranes Moist, Normal Exam - Neck Exam Neck Exam: Full ROM, Normal Inspection. absent: Lymphadenopathy - Respiratory Exam Respiratory Exam: Clear to Ausculation Bilateral, NORMAL BREATHING PATTERN - Cardiovascular Exam Cardiovascular Exam: REGULAR RHYTHM, +S1, +S2. absent: Murmur - GI/Abdominal Exam GI & Abdominal Exam: Soft, Normal Bowel Sounds. absent: Tenderness - Extremities Exam Extremities Exam: Full ROM, Normal Capillary Refill, Normal Inspection. absent : Joint Swelling, Pedal Edema - Back Exam Back Exam: NORMAL INSPECTION - Neurological Exam Neurological Exam: Alert, Awake, CN II-XII Intact, Normal Gait, Oriented x3 - Psychiatric Exam Psychiatric exam: Normal Affect, Normal Mood - Skin Skin Exam: Dry, Intact, Normal Color, Warm Assessment and Plan - Assessment and Plan (Free Text) Assessment: 47 year old male with pertinent history of HIV presented with dyspnea. Patient 's CT Chest showed bilateral multifocal infiltrates. Patient blood cultures negative. No SIRS criteria on admission, one bout of tachycardia last night. Patient CD 4 < 20; in this setting of AIDS, PCP pneumonia is most likely culprit and is positive in serum, patient is getting better with treatment; O2 sats are still low, averaging ~96%. Mycoplasma IgG is high but IgM is low, indicating chronic infection but not acute with immunity. S. Pneumoniae negative. Patient has diabetes with A1C of 7.4. Plan: Dyspnea, likely 2/2 PCP - Pulm Consult, follow recs - Duonebs Q4 silvina - Prednisone 60 PO QD - TMPSMX DS PO BID - Azithro 500 IV QD AIDS - Patient will need to start HAART therapy outpatient - Follow ID Recs Diabetes mellitus - RISS Low with accuchecks Prophylaxis - Lovenox <Trish Dallas - Last Filed: 01/20/18 12:24> Objective - Vital Signs/Intake and Output Vital Signs (last 24 hours): Temp Pulse Resp BP Pulse Ox 97 F L 88 20 90/54 L 93 L 01/20/18 08:16 01/20/18 08:16 01/20/18 08:16 01/20/18 08:16 01/20/18 08:16 Intake and Output: 01/20/18 01/20/18 06:59 18:59 Intake Total 120 Output Total 0 Balance 120 - Medications Medications: Current Medications Albuterol/Ipratropium (Duoneb 3 Mg/0.5 Mg (3 Ml) Ud) 3 ml IH Q4H [facility] Last Admin: 01/20/18 11:15 Dose: 3 ml Enoxaparin Sodium (Lovenox) 40 mg SC DAILY [facility] PRN Reason: Protocol Last Admin: 01/20/18 09:20 Dose: 40 mg Azithromycin (Zithromax 500mg In Ns) 500 mg in 250 mls @ 167 mls/hr IVPB DAILY [facility] PRN Reason: Protocol Insulin Human Regular (Humulin R Low) 0 units SC ACHS [facility] PRN Reason: Protocol Last Admin: 01/20/18 08:30 Dose: 1 units Prednisone (Prednisone Tab) 60 mg PO DAILY [facility] Last Admin: 01/20/18 09:20 Dose: 60 mg Trimethoprim/Sulfamethoxazole (Bactrim Ds Tab) 1 tab PO BID [facility] PRN Reason: Protocol - Labs Labs: 01/18/18 05:15 01/18/18 05:15 Attending/Attestation - Attestation I have personally seen and examined this patient.: Yes I have fully participated in the care of the patient.: Yes I have reviewed all pertinent clinical information, including history, physical exam and plan: Yes Notes (Text): 01/20/18 12:22 47 year old with past medical history of diabetes and HIV with history of noncompliance who is admitted with multifocal pneumonia. CD4 count is low and he is being treated for possible PCP. He is on azithromycin, bactrim and po steroids. He was hypoxic few days prior and will need 6 minute walk test prior to discharge. He is being followed by ID; case was discussed with Dr. Ruelas yesterday. He was also seen by pulmonary; awaiting recommendations. Trish Dallas MD Hospitalist.
[2018-01-20] MEDS ORDERED: guaiFENesin DM 200 mg-20 mg/10 ml UD PO PRN (17:09)
--- NOTE | 2018-01-20 18:06 | CP.PCM.PN ---
Subjective - Date & Time of Evaluation Date of Evaluation: 01/20/18 Time of Evaluation: 16:00 - Subjective Subjective: Infectious Disease Follow Up: January 20, 2018 47 Male with a PMH of DM (No medication, diet controlled) who comes in to the ED with 1.5 wk history of worsening SOB. He states that it became progressively worse until yesterday when he was unable to climb one flight of stairs without stopping to rest and catch his breath. It is associated with a cough with minimally productive sputum, 3 episodes of diarrhea and no nausea or vomiting. Complains of subjective fevers and occasionally shaking chills. Denies any orthopnea or paroxysmal nocturnal dyspnea. Usually he is able to ride his bike or walk fairly long and generally tries to keep in good shape. He became worried when the SOB started to affect his ADLs. 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 Has 3 pets at home but these are not new. No recent incarceration. No sick contacts. No recent travel. No strange foods. Postive HIV test. Off HAART for at least two years (patient now saying two years ago and was with Dr. Pickard in [place], [place], more recently he had gone to the [facility] at [facility] for about 6 months but stopped as he did not like that clinic). On attempts to ambulate yesterday, the patient was found to have desaturations down to 70%. PCP is most likely diagnosis. CD4 < 20. HIV Viral Load still pending. He has a girlfriend that he has not told about his HIV condition and at this point and current does not want to. Encouraged patient that he should inform his partner. [place] Department of Health should be informed regarding rules/laws on informing the patient's partner. Objective - Vital Signs/Intake and Output Vital Signs (last 24 hours): Temp Pulse Resp BP Pulse Ox 97 F L 88 20 90/54 L 93 L 01/20/18 08:16 01/20/18 08:16 01/20/18 08:16 01/20/18 08:16 01/20/18 08:16 Intake and Output: 01/20/18 01/20/18 06:59 18:59 Intake Total 120 Output Total 0 Balance 120 - Medications Medications: Current Medications Albuterol/Ipratropium (Duoneb 3 Mg/0.5 Mg (3 Ml) Ud) 3 ml IH Q4H [facility] Last Admin: 01/20/18 14:59 Dose: 3 ml Enoxaparin Sodium (Lovenox) 40 mg SC DAILY [facility] PRN Reason: Protocol Last Admin: 01/20/18 09:20 Dose: 40 mg Guaifenesin/Dextromethorphan (Robitussin Dm) 10 ml PO Q4H [facility] PRN Reason: Cough Last Admin: 01/20/18 17:37 Dose: 10 ml Azithromycin (Zithromax 500mg In Ns) 500 mg in 250 mls @ 167 mls/hr IVPB DAILY [facility] PRN Reason: Protocol Last Admin: 01/20/18 11:00 Dose: Not Given Insulin Human Regular (Humulin R Low) 0 units SC ACHS [facility] PRN Reason: Protocol Last Admin: 01/20/18 16:30 Dose: 4 units Prednisone (Prednisone Tab) 60 mg PO DAILY [facility] Last Admin: 01/20/18 09:20 Dose: 60 mg Trimethoprim/Sulfamethoxazole (Bactrim Ds Tab) 1 tab PO BID [facility] PRN Reason: Protocol Last Admin: 01/20/18 17:47 Dose: 1 tab - Labs Labs: 01/18/18 05:15 01/18/18 05:15 - Constitutional Appears: Non-toxic, No Acute Distress, Chronically Ill - Head Exam Head Exam: ATRAUMATIC, NORMOCEPHALIC - Eye Exam Eye Exam: EOMI, PERRL Pupil Exam: NORMAL ACCOMODATION, PERRL - ENT Exam ENT Exam: Mucous Membranes Moist, Normal External Ear Exam, TM's Normal Bilaterally - Neck Exam Neck Exam: Full ROM, Normal Inspection - Respiratory Exam Respiratory Exam: Clear to Ausculation Bilateral, NORMAL BREATHING PATTERN. absent: Rales, Rhonchi, Wheezes - Cardiovascular Exam Cardiovascular Exam: REGULAR RHYTHM, RRR, +S1, +S2 - GI/Abdominal Exam GI & Abdominal Exam: Soft, Normal Bowel Sounds. absent: Distended, Tenderness - Extremities Exam Extremities Exam: Full ROM, Normal Inspection - Neurological Exam Neurological Exam: Alert, Awake, CN II-XII Intact, Oriented x3 - Psychiatric Exam Psychiatric exam: Normal Affect, Normal Mood - Skin Skin Exam: Intact, Normal Color Assessment and Plan - Assessment and Plan (Free Text) Assessment: 47 yo male with HIV with CT chest showing multifocal bilateral pulmonary infiltrates started on Rocephin and Azithromycin. Bactrim should also be treated for potenital PCP pneumonia. Need CD4 and HIV Viral Load. Obtain HIV Genotype as well. Procalcitonin is low currently. Will need repeat CT scan in 2-3 months. Patient with desaturation down to 70% on light ambulation. Maintain patient on PO Bactrim DS BID. PCP pneumonia the most likely diagnosis. Supportive care. HIV with potential AIDS classification. Awaiting CD4 and HIV Viral load. CD4 < 20. Recheck procalcitonin. Patient has uninformed partner. [place] Department of [facility] should be informed that patient has a partner who would need notification. HAART to be restarted in outpatient setting. Thank you for allowing me to participate in the care of the patient, we will follow with you.
[2018-01-21] MEDS: Albuterol-Ipratrop 3 mg / 0.5 (3 ml) UD IH SCH ×2 (04:07→07:51)
[2018-01-21 08:27] VITALS: BP 95/55; PULSE 75; TEMP 96; O2SAT 95
--- NOTE | 2018-01-21 08:33 | CON ---
DATE: 01/19/2018 PULMONARY CONSULTATION REQUESTING PHYSICIAN: Ramon Brunson MD CHIEF COMPLAINT: Patient initially presented with shortness of breath. HISTORY OF PRESENT ILLNESS: The patient is a 47-year-old male with a history of HIV and has not been on his HIV meds for approximately 2 years. The patient states that he has been developing shortness of breath over the last week and a half that progressively got worse. He has some cough and minimal sputum as well. He also had 3 episodes of diarrhea, but no nausea or vomiting, and complained of subjective fever and shaking chills.. At this time, the patient has been in the hospital and treated with Bactrim as well as bronchodilator treatments, and prednisone, and at this juncture, he states that he is getting better, his cough is much better, no phlegm coming up. No chest pain. No wheezing. No increase of shortness of breath. He is able to walk around the parks, and his respiratory status is stable during that time. PAST MEDICAL HISTORY: Significant for HIV and diet-controlled diabetes. ALLERGIES: THE PATIENT HAS NO KNOWN ALLERGIES. CURRENT MEDICATIONS: Can be evaluated as per the nurse's intake form. SOCIAL HISTORY: The patient stopped smoking 20 years ago. He does use alcohol, but no substance abuse. FAMILY HISTORY: Noncontributory. REVIEW OF SYSTEMS: CONSTITUTIONAL: All negative. HEENT: All negative. RESPIRATORY: The patient had presented with shortness of breath, cough and congestion. CARDIOVASCULAR: All negative. GASTROINTESTINAL: All negative. GENITOURINARY: All negative. MUSCULOSKELETAL: All negative. NEUROPSYCHIATRIC: All negative. HEMATOLOGIC: All negative. IMMUNOLOGIC: All negative. ENDOCRINE: All negative. PHYSICAL EXAMINATION: VITAL SIGNS: His temperature is 98.3, his pulse is 94, respirations are 16, and his BP is 105/63. SKIN: Warm and dry. HEENT: Head atraumatic, normocephalic. Eyes reactive to light. Ear, nose and throat seemed to be within normal limits. NECK: Supple. No JVD. No thyroid enlargement or lymph nodes. HEART: Has regular rate and rhythm. Normal S1 and S2. LUNGS: Reveal good breath sounds bilaterally. ABDOMEN: Soft, nontender. Normal bowel sounds. No organomegaly noted. GENITALIA: Deferred. RECTAL: Deferred. MUSCULOSKELETAL: No joint deformities. EXTREMITIES: Reveal no edema. NEUROLOGIC: He seemed to be grossly intact. LABORATORY DATA: As far as his laboratories are concerned, his white count is 7.4, hemoglobin is 12.9, hematocrit 37.8, with platelets of 203,000. The patient's sodium is 139, potassium is 5.2, chloride 102, CO2 of 27, with a BUN of 14, creatinine of 0.9 and a glucose of 176. As far as CT scan of the chest, it reveals that there is bilateral fluffy infiltrates. 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 He is human immunodeficiency virus positive, and is noncompliant with his heart medications. PLAN: I will continue with bronchodilators and O2 support p.r.n. I will continue with medications of DuoNeb, Bactrim, prednisone and Zithromax. I would recommend following the recommendations for antibacterial treatment as per ID. At this time, I do not think the patient requires a bronchoscopy. It seems as though he is responding to appropriate therapy and I would recommend continued aggressive therapy. We will re-consult if necessary. Thor Yates MD
[2018-01-21] MEDS: Insulin Reg-LOW-Coverage SC SCH (08:37)
[2018-01-21] MEDS: Tmp-Smz 800 mg-160 mg DS Tab PO SCH (09:33)
[2018-01-21] MEDS: Azithromycin 500MG/NS 250ml 500 MG/250 ML BAG IVPB SCH (09:33)
[2018-01-21] MEDS: Enoxaparin 40 mg Syringe SC SCH (09:33)
--- NOTE | 2018-01-21 13:41 | CP.PCM.DIS ---
<Adal Nathan - Last Filed: 01/21/18 13:24> Provider - Provider Date of Admission: 01/15/18 14:38 Attending physician: Trish Dallas MD Consults: Pulmonology: Dr. Oro Infectious Disease: Dr. Ruelas Time Spent in preparation of Discharge (in minutes): 35 Diagnosis - Discharge Diagnosis (1) Diabetes mellitus Status: Chronic (2) HIV (human immunodeficiency virus infection) Status: Chronic (3) Hypoxic Status: Acute (4) Pneumonia Status: Acute Hospital Course - Lab Results Lab Results: Micro Results 01/15/18 15:55 Blood Blood Culture - Final NO GROWTH AFTER 5 DAYS 01/15/18 15:55 Blood Gram Stain - Final TEST NOT PERFORMED 01/15/18 15:25 Blood Blood Culture - Final NO GROWTH AFTER 5 DAYS 01/15/18 15:25 Blood Gram Stain - Final TEST NOT PERFORMED Most Recent Lab Values WBC 7.4 10^3/ul (4.5-11.0) 01/18/18 05:15 RBC 4.49 10^6/uL (3.5-6.1) 01/18/18 05:15 Hgb 12.9 g/dL (14.0-18.0) L 01/18/18 05:15 Hct 37.8 % (42.0-52.0) L 01/18/18 05:15 MCV 84.2 fl (80.0-105.0) 01/18/18 05:15 MCH 28.7 pg (25.0-35.0) 01/18/18 05:15 MCHC 34.1 g/dl (31.0-37.0) 01/18/18 05:15 RDW 13.8 % (11.5-14.5) 01/18/18 05:15 Plt Count 203 10^3/uL (120.0-450.0) 01/18/18 05:15 MPV 9.9 fl (7.0-11.0) 01/18/18 05:15 Gran % 81.3 % (50.0-68.0) H 01/18/18 05:15 Lymph % (Auto) 6.6 % (22.0-35.0) L 01/18/18 05:15 [place] % (Auto) 11.1 % (1.0-6.0) H 01/18/18 05:15 Eos % (Auto) 0.9 % (1.5-5.0) L 01/18/18 05:15 Baso % (Auto) 0.1 % (0.0-3.0) 01/18/18 05:15 Gran # 5.99 (1.4-6.5) 01/18/18 05:15 Lymph # (Auto) 0.5 (1.2-3.4) L 01/18/18 05:15 [place] # (Auto) 0.8 (0.1-0.6) H 01/18/18 05:15 Eos # (Auto) 0.1 (0.0-0.7) 01/18/18 05:15 Baso # (Auto) 0.01 K/mm3 (0.0-2.0) 01/18/18 05:15 D-Dimer, Quantitative 2545 ng/mL (0-243) H 01/15/18 13:17 pCO2 32 mm/Hg (35-45) L 01/15/18 15:15 pO2 56.0 mm/Hg (80-100) L 01/15/18 15:15 HCO3 22.8 mmol/L (21-28) 01/15/18 15:15 ABG pH 7.46 (7.35-7.45) H 01/15/18 15:15 ABG Total CO2 23.8 mmol.L (22-28) 01/15/18 15:15 ABG O2 Saturation 92.0 % (95-98) L 01/15/18 15:15 ABG O2 Content 15.3 ML/dl (15-23) 01/15/18 15:15 ABG Base Excess -0.4 mmol/L (-2.0-3.0) 01/15/18 15:15 ABG Hemoglobin 12.1 g/dL (11.7-17.4) 01/15/18 15:15 ABG Carboxyhemoglobin 1.7 % (0.5-1.5) H 01/15/18 15:15 POC ABG HHb (Measured) 7.8 % (0-5) H 01/15/18 15:15 ABG Methemoglobin 0.5 % (0.0-3.0) 01/15/18 15:15 ABG O2 Capacity 16.6 mL/dl (16-24) 01/15/18 15:15 Hgb O2 Saturation 90.0 % (95.0-98.0) L 01/15/18 15:15 FiO2 21.0 % 01/15/18 15:15 Sodium 139 mmol/L (132-148) 01/18/18 05:15 Potassium 5.2 mmol/L (3.6-5.0) H 01/18/18 05:15 Chloride 102 mmol/L (98-107) 01/18/18 05:15 Carbon Dioxide 27 mmol/L (21-33) 01/18/18 05:15 Anion Gap 15 (10-20) 01/18/18 05:15 BUN 14 mg/dL (7-21) 01/18/18 05:15 Creatinine 0.9 mg/dl (0.8-1.5) 01/18/18 05:15 Est GFR ( Amer) > 60 01/18/18 05:15 Est GFR (Non-Af Amer) > 60 01/18/18 05:15 POC Glucose (mg/dL) 190 mg/dL (65-110) H 01/21/18 07:28 Random Glucose 136 mg/dL (70-110) H 01/18/18 05:15 Hemoglobin A1c 7.4 % (4.2-6.5) H 01/16/18 06:15 Calcium 8.7 mg/dL (8.4-10.5) 01/18/18 05:15 Phosphorus 3.2 mg/dL (2.5-4.5) 01/16/18 07:00 Magnesium 1.9 mg/dL (1.7-2.2) 01/16/18 07:00 Total Bilirubin 0.4 mg/dL (0.2-1.3) 01/18/18 05:15 AST 37 U/L (17-59) 01/18/18 05:15 ALT 33 U/L (7-56) 01/18/18 05:15 Alkaline Phosphatase 86 U/L (38-126) 01/18/18 05:15 Troponin I < 0.01 ng/mL 01/15/18 13:17 NT-Pro-B Natriuret Pep 31.2 pg/mL (0-450) 01/15/18 13:17 Total Protein 7.1 g/dL (5.8-8.3) 01/18/18 05:15 Albumin 3.7 g/dL (3.0-4.8) 01/18/18 05:15 Globulin 3.4 gm/dL 01/18/18 05:15 Albumin/Globulin Ratio 1.1 (1.1-1.8) 01/18/18 05:15 Triglycerides 101 mg/dL (35-160) 01/18/18 05:15 Cholesterol 121 mg/dL (130-200) L 01/18/18 05:15 LDL Cholesterol Direct 73 mg/dL (0-129) 01/18/18 05:15 HDL Cholesterol 30 mg/dL (29-60) 01/18/18 05:15 Procalcitonin < 0.05 NG/ML (0.19-0.49) L 01/16/18 06:15 TSH 3rd Generation 1.60 mIU/mL (0.46-4.68) 01/16/18 06:15 Absolute Lymphs (Flow) 694 Cells/mcL (850-3900) L 01/16/18 09:10 % CD4 Cells 1 Percent (30-61) L 01/16/18 09:10 Absolute CD4 Count <20 Cells/mcL (490-1740) L 01/16/18 09:10 T-Help/Suppress Ratio 0.01 Ratio (0.86-5.00) L 01/16/18 09:10 % CD8 Cells 57 Percent (12-42) H 01/16/18 09:10 Absolute CD8 Count 395 Cells/mcL (180-1170) 01/16/18 09:10 T-Lymph Analys Comment See note 01/16/18 09:10 HIV 1&2 Antibody Screen Reactive (NEGATIVE) 01/15/18 15:55 Mycoplasma pneumon IgG 0.97 (<=0.90) H 01/16/18 06:15 Mycoplasma pneumon IgM 180 U/mL (<770) 01/16/18 06:15 Pneumocystis Source Serum 01/16/18 06:15 S. pneumoniae Antigen Not detected 01/16/18 06:15 - Hospital Course Hospital Course: Patient is a 47 year old male with past medical history of DM2, HIV with last known CD4 count of <20 who presented to ED for worsening shortness of breath, subjective fever and chills. Patient was admitted for multifocal bilateral pneumonia. Patient was placed on antibiotics and steroids. Infectious disease was consulted and recommended alterations to antibiotic therapy. Patient was transitioned form rocephin/azithromycin and bactrim to Bactrim and Azithhromycin. ID recommended continued outpatient therapy for two weeks with Bactrim and Azithromycin. Patient symptoms improved over course of stay, patient was evaluated with six minute walk test where he reported no symptoms of shortness of breath, tachycardia, palpitations or chest pain. Patient was instructed on the importance of follow up with both PMD and infectious disease physician for management of his DM and HIV. Patient was also encouraged to discuss his HIV diagnosis with his girlfriend who as per the patient is unaware of his diagnosis. Risk management and infectious disease nurse Molly Melgar were informed of patient and HIV status. [facility] was contacted and informed of patient's HIV status. [facility] is to follow up patient case. Discharge instructions including medication reconciliation, appropriate follow up were discussed in detail with patient. Patient was in understanding and agreeable. - Date & Time of H&P Date of H&P: 01/15/18 Time of H&P: 11:59 Discharge Exam - Head Exam Head Exam: ATRAUMATIC, NORMOCEPHALIC - Eye Exam Eye Exam: EOMI, PERRL - ENT Exam ENT Exam: Mucous Membranes Moist - Respiratory Exam Respiratory Exam: Decreased Breath Sounds (minimal bilateral ), NORMAL BREATHING PATTERN - Cardiovascular Exam Cardiovascular Exam: REGULAR RHYTHM, +S1, +S2 - GI/Abdominal Exam GI & Abdominal Exam: Normal Bowel Sounds, Soft. absent: Guarding, Mass, Tenderness - Extremities Exam Extremities exam: pedal pulses present - Neurological Exam Neurological exam: Alert, Normal Gait, Oriented x3 - Psychiatric Exam Psychiatric exam: Normal Affect, Normal Mood - Skin Skin Exam: Dry, Warm Discharge Plan - Discharge Medications Prescriptions: Azithromycin 500 mg PO DAILY #14 tablet metFORMIN [glucOPHAGE] 500 mg PO BID #30 tab Prednisone [Deltasone] See Taper PO DAILY #16 tablet Sulfamethoxazole/Trimethoprim [Bactrim DS 800 mg-160 mg] 1 tab PO BID #28 tab - Follow Up Plan Condition: FAIR Disposition: HOME/ ROUTINE Instructions: Pneumonia in Adults, HIV/AIDS, Pneumonia, Adult (DC), HIV/AIDS ( DC) Additional Instructions: Please follow up at [facility] 7-10 days in order to follow up remaining blood tests in case you are unable to establish with primary care physician. It is of great importance that you find a primary care doctor to direct your care. I have discussed with you the importance of being compliant with your antiretroviral therapy. Your significant other should also be tested for HIV frequently and should take Pre exposure prophylaxis prior to intercourse. She needs to have a primary care doctor to have her labs checked regularly if she is to take this medication. Please continue to use safe sex practices during this time. Take medications as prescribed to you Adhere to low carbohydrate diet and exercise regiment Return to ED if you experience worsening symptoms, chest pain, shortness of breath, unrelenting fever Referrals: [facility], [Non-Staff] - <Trish Dallas - Last Filed: 01/21/18 15:57> Provider - Provider Date of Admission: 01/15/18 14:38 Attending physician: Trish Dallas MD Hospital Course - Lab Results Lab Results: Micro Results 01/15/18 15:55 Blood Blood Culture - Final NO GROWTH AFTER 5 DAYS 01/15/18 15:55 Blood Gram Stain - Final TEST NOT PERFORMED 01/15/18 15:25 Blood Blood Culture - Final NO GROWTH AFTER 5 DAYS 01/15/18 15:25 Blood Gram Stain - Final TEST NOT PERFORMED Most Recent Lab Values WBC 7.4 10^3/ul (4.5-11.0) 01/18/18 05:15 RBC 4.49 10^6/uL (3.5-6.1) 01/18/18 05:15 Hgb 12.9 g/dL (14.0-18.0) L 01/18/18 05:15 Hct 37.8 % (42.0-52.0) L 01/18/18 05:15 MCV 84.2 fl (80.0-105.0) 01/18/18 05:15 MCH 28.7 pg (25.0-35.0) 01/18/18 05:15 MCHC 34.1 g/dl (31.0-37.0) 01/18/18 05:15 RDW 13.8 % (11.5-14.5) 01/18/18 05:15 Plt Count 203 10^3/uL (120.0-450.0) 01/18/18 05:15 MPV 9.9 fl (7.0-11.0) 01/18/18 05:15 Gran % 81.3 % (50.0-68.0) H 01/18/18 05:15 Lymph % (Auto) 6.6 % (22.0-35.0) L 01/18/18 05:15 [place] % (Auto) 11.1 % (1.0-6.0) H 01/18/18 05:15 Eos % (Auto) 0.9 % (1.5-5.0) L 01/18/18 05:15 Baso % (Auto) 0.1 % (0.0-3.0) 01/18/18 05:15 Gran # 5.99 (1.4-6.5) 01/18/18 05:15 Lymph # (Auto) 0.5 (1.2-3.4) L 01/18/18 05:15 [place] # (Auto) 0.8 (0.1-0.6) H 01/18/18 05:15 Eos # (Auto) 0.1 (0.0-0.7) 01/18/18 05:15 Baso # (Auto) 0.01 K/mm3 (0.0-2.0) 01/18/18 05:15 D-Dimer, Quantitative 2545 ng/mL (0-243) H 01/15/18 13:17 pCO2 32 mm/Hg (35-45) L 01/15/18 15:15 pO2 56.0 mm/Hg (80-100) L 01/15/18 15:15 HCO3 22.8 mmol/L (21-28) 01/15/18 15:15 ABG pH 7.46 (7.35-7.45) H 01/15/18 15:15 ABG Total CO2 23.8 mmol.L (22-28) 01/15/18 15:15 ABG O2 Saturation 92.0 % (95-98) L 01/15/18 15:15 ABG O2 Content 15.3 ML/dl (15-23) 01/15/18 15:15 ABG Base Excess -0.4 mmol/L (-2.0-3.0) 01/15/18 15:15 ABG Hemoglobin 12.1 g/dL (11.7-17.4) 01/15/18 15:15 ABG Carboxyhemoglobin 1.7 % (0.5-1.5) H 01/15/18 15:15 POC ABG HHb (Measured) 7.8 % (0-5) H 01/15/18 15:15 ABG Methemoglobin 0.5 % (0.0-3.0) 01/15/18 15:15 ABG O2 Capacity 16.6 mL/dl (16-24) 01/15/18 15:15 Hgb O2 Saturation 90.0 % (95.0-98.0) L 01/15/18 15:15 FiO2 21.0 % 01/15/18 15:15 Sodium 139 mmol/L (132-148) 01/18/18 05:15 Potassium 5.2 mmol/L (3.6-5.0) H 01/18/18 05:15 Chloride 102 mmol/L (98-107) 01/18/18 05:15 Carbon Dioxide 27 mmol/L (21-33) 01/18/18 05:15 Anion Gap 15 (10-20) 01/18/18 05:15 BUN 14 mg/dL (7-21) 01/18/18 05:15 Creatinine 0.9 mg/dl (0.8-1.5) 01/18/18 05:15 Est GFR ( Amer) > 60 01/18/18 05:15 Est GFR (Non-Af Amer) > 60 01/18/18 05:15 POC Glucose (mg/dL) 190 mg/dL (65-110) H 01/21/18 07:28 Random Glucose 136 mg/dL (70-110) H 01/18/18 05:15 Hemoglobin A1c 7.4 % (4.2-6.5) H 01/16/18 06:15 Calcium 8.7 mg/dL (8.4-10.5) 01/18/18 05:15 Phosphorus 3.2 mg/dL (2.5-4.5) 01/16/18 07:00 Magnesium 1.9 mg/dL (1.7-2.2) 01/16/18 07:00 Total Bilirubin 0.4 mg/dL (0.2-1.3) 01/18/18 05:15 AST 37 U/L (17-59) 01/18/18 05:15 ALT 33 U/L (7-56) 01/18/18 05:15 Alkaline Phosphatase 86 U/L (38-126) 01/18/18 05:15 Troponin I < 0.01 ng/mL 01/15/18 13:17 NT-Pro-B Natriuret Pep 31.2 pg/mL (0-450) 01/15/18 13:17 Total Protein 7.1 g/dL (5.8-8.3) 01/18/18 05:15 Albumin 3.7 g/dL (3.0-4.8) 01/18/18 05:15 Globulin 3.4 gm/dL 01/18/18 05:15 Albumin/Globulin Ratio 1.1 (1.1-1.8) 01/18/18 05:15 Triglycerides 101 mg/dL (35-160) 01/18/18 05:15 Cholesterol 121 mg/dL (130-200) L 01/18/18 05:15 LDL Cholesterol Direct 73 mg/dL (0-129) 01/18/18 05:15 HDL Cholesterol 30 mg/dL (29-60) 01/18/18 05:15 Procalcitonin < 0.05 NG/ML (0.19-0.49) L 01/16/18 06:15 TSH 3rd Generation 1.60 mIU/mL (0.46-4.68) 01/16/18 06:15 Absolute Lymphs (Flow) 694 Cells/mcL (850-3900) L 01/16/18 09:10 % CD4 Cells 1 Percent (30-61) L 01/16/18 09:10 Absolute CD4 Count <20 Cells/mcL (490-1740) L 01/16/18 09:10 T-Help/Suppress Ratio 0.01 Ratio (0.86-5.00) L 01/16/18 09:10 % CD8 Cells 57 Percent (12-42) H 01/16/18 09:10 Absolute CD8 Count 395 Cells/mcL (180-1170) 01/16/18 09:10 T-Lymph Analys Comment See note 01/16/18 09:10 HIV 1&2 Antibody Screen Reactive (NEGATIVE) 01/15/18 15:55 Mycoplasma pneumon IgG 0.97 (<=0.90) H 01/16/18 06:15 Mycoplasma pneumon IgM 180 U/mL (<770) 01/16/18 06:15 Pneumocystis Source Serum 01/16/18 06:15 S. pneumoniae Antigen Not detected 01/16/18 06:15 Attending/Attestation - Attestation I have personally seen and examined this patient.: Yes I have fully participated in the care of the patient.: Yes I have reviewed all pertinent clinical information, including history, physical exam and plan: Yes Notes (Text): 01/21/18 15:43 47 year old with past medical history of diabetes and HIV with history of noncompliance who presented with shortness of breath. He was found to have multifocal pneumonia and started on antibiotics. CD4 count was low and he was treated for possible PCP. He was on azithromycin, bactrim and po steroids. He was hypoxic few days prior but this improved today. He had 6 minute walk test which he tolerated. He was being followed by ID and seen by pulmonary. [facility] was contacted and informed of patient's HIV status. Patient is discharged home to follow up with pmd or [facility]. Follow up with ID. HAART to be resumed as outpatient. Trish Dallas MD Hospitalist.
--- NOTE | 2018-01-21 13:41 | CP.PCM.PN ---
Subjective - Date & Time of Evaluation Date of Evaluation: 01/21/18 Time of Evaluation: 12:30 - Subjective Subjective: Infectious Disease Follow Up: January 21, 2018 47 Male with a PMH of DM (No medication, diet controlled) who comes in to the ED with 1.5 wk history of worsening SOB. He states that it became progressively worse until yesterday when he was unable to climb one flight of stairs without stopping to rest and catch his breath. It is associated with a cough with minimally productive sputum, 3 episodes of diarrhea and no nausea or vomiting. Complains of subjective fevers and occasionally shaking chills. Denies any orthopnea or paroxysmal nocturnal dyspnea. Usually he is able to ride his bike or walk fairly long and generally tries to keep in good shape. He became worried when the SOB started to affect his ADLs. 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 Has 3 pets at home but these are not new. No recent incarceration. No sick contacts. No recent travel. No strange foods. Postive HIV test. Off HAART for at least two years (patient now saying two years ago and was with Dr. Pickard in [place], [place], more recently he had gone to the [facility] for about 6 months but stopped as he did not like that clinic). On attempts to ambulate yesterday, the patient was found to have desaturations down to 70%. PCP is most likely diagnosis. CD4 < 20. HIV Viral Load still pending. He has a girlfriend that he has not told about his HIV condition and at this point and current does not want to. Encouraged patient that he should inform his partner. [place] [facility] should be informed regarding rules/laws on informing the patient's partner. Objective - Vital Signs/Intake and Output Vital Signs (last 24 hours): Temp Pulse Resp BP Pulse Ox 96 F L 75 20 95/55 L 95 01/21/18 08:26 01/21/18 08:26 01/21/18 08:26 01/21/18 08:26 01/21/18 08:26 Intake and Output: 01/21/18 01/21/18 06:59 18:59 Intake Total 1480 Output Total 0 Balance 1480 - Medications Medications: Current Medications Albuterol/Ipratropium (Duoneb 3 Mg/0.5 Mg (3 Ml) Ud) 3 ml IH Q4H [facility] Last Admin: 01/21/18 07:51 Dose: 3 ml Enoxaparin Sodium (Lovenox) 40 mg SC DAILY JENNIFER PRN Reason: Protocol Last Admin: 01/21/18 09:33 Dose: Not Given Guaifenesin/Dextromethorphan (Robitussin Dm) 10 ml PO Q4H PRN PRN Reason: Cough Last Admin: 01/20/18 17:37 Dose: 10 ml Azithromycin (Zithromax 500mg In Ns) 500 mg in 250 mls @ 167 mls/hr IVPB DAILY JENNIFER PRN Reason: Protocol Last Admin: 01/21/18 09:33 Dose: 167 mls/hr Insulin Human Regular (Humulin R Low) 0 units SC ACHS JENNIFER PRN Reason: Protocol Last Admin: 01/21/18 08:37 Dose: 1 units Prednisone (Prednisone Tab) 60 mg PO DAILY [facility] Last Admin: 01/21/18 09:33 Dose: 60 mg Sodium Chloride ([place] Nasal [place]) 0 ml NS BID PRN PRN Reason: Nasal congestion Last Admin: 01/20/18 22:07 Dose: 1 spray Trimethoprim/Sulfamethoxazole (Bactrim Ds Tab) 1 tab PO BID JENNIFER PRN Reason: Protocol Last Admin: 01/21/18 09:33 Dose: 1 tab - Labs Labs: 01/18/18 05:15 01/18/18 05:15 - Constitutional Appears: Non-toxic, No Acute Distress, Chronically Ill - Head Exam Head Exam: ATRAUMATIC, NORMOCEPHALIC - Eye Exam Eye Exam: EOMI, PERRL Pupil Exam: NORMAL ACCOMODATION, PERRL - ENT Exam ENT Exam: Mucous Membranes Moist, Normal External Ear Exam, TM's Normal Bilaterally - Neck Exam Neck Exam: Full ROM, Normal Inspection - Respiratory Exam Respiratory Exam: Clear to Ausculation Bilateral, Wheezes, NORMAL BREATHING PATTERN. absent: Rales, Rhonchi - Cardiovascular Exam Cardiovascular Exam: REGULAR RHYTHM, RRR, +S1, +S2 - GI/Abdominal Exam GI & Abdominal Exam: Soft, Normal Bowel Sounds. absent: Distended, Tenderness - Extremities Exam Extremities Exam: Full ROM, Normal Inspection - Neurological Exam Neurological Exam: Alert, Awake, CN II-XII Intact, Oriented x3 - Psychiatric Exam Psychiatric exam: Normal Affect, Normal Mood - Skin Skin Exam: Intact, Normal Color Assessment and Plan - Assessment and Plan (Free Text) Assessment: 47 yo male with HIV with CT chest showing multifocal bilateral pulmonary infiltrates started on Rocephin and Azithromycin. Bactrim should also be treated for potenital PCP pneumonia. Need CD4 and HIV Viral Load. Obtain HIV Genotype as well. Procalcitonin is low currently. Will need repeat CT scan in 2-3 months. Patient with desaturation down to 70% on light ambulation. Maintain patient on PO Bactrim DS BID. PCP pneumonia the most likely diagnosis. Supportive care. HIV with potential AIDS classification. Awaiting CD4 and HIV Viral load. CD4 < 20. Recheck procalcitonin. Patient has uninformed partner. [place] [facility] should be informed that patient has a partner who would need notification. HAART to be restarted in outpatient setting. Patient should receive 14 days of Bactrim DS at the minimum. Thank you for allowing me to participate in the care of the patient, we will follow with you.
== END 2018-01-21 16:49 | disposition home or self-care (01) | DRG 712 ==
LOC: ED 11:28 → ERH 14:38 → 3RSO 15:28 → ED 15:35 → 3RSO 18:01
PROVIDERS: ADMIT Internal Medicine; ATTEND Internal Medicine
PROC: 3E0F7GC Introduction of Other Therapeutic Substance into Respiratory Tract, Via Natural or Artificial Opening (ICD-10-PCS; principal; 2018-01-17)
DX: B20 Human immunodeficiency virus [HIV] disease (principal); B59 Pneumocystosis; R09.02 Hypoxemia; E11.9 Type 2 diabetes mellitus without complications; R00.0 Tachycardia, unspecified; Z91.19 Patient's noncompliance with other medical treatment and regimen; Z91.14 Patient's other noncompliance with medication regimen; Z87.891 Personal history of nicotine dependence

== ENCOUNTER 2018-11-15 18:25 | Emergency (ER) | payer OTHER ==
[2018-11-15 19:08] VITALS: BP 123/72; PULSE 89; RESP 18; TEMP 98.7; O2SAT 98; BMI 32.5
[2018-11-15] MEDS ORDERED: TDAP Vaccine 0.5 mL Syr IM ONE (20:22)
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
[2018-11-15] MEDS ORDERED: Silver Sulfadiazine 1% Cream (25 gm) TP STA (21:00)
== END 2018-11-15 22:45 | disposition home or self-care (01) ==
LOC: ED 18:25
DX: T65.891A Toxic effect of other specified substances, accidental (unintentional), initial encounter (principal); T22.411A Corrosion of unspecified degree of right forearm, initial encounter; Y93.E9 Activity, other interior property and clothing maintenance; Z23 Encounter for immunization